=== PATIENT | male | born 1990 | race Caucasian/White ===

== ENCOUNTER 2020-10-16 01:45 | Emergency (ER) | payer OTHER, SELFPAY ==
[2020-10-16 01:52] VITALS: BP 133/71; PULSE 108; RESP 16; TEMP 37.4; O2SAT 96; BMI 25.1
--- NOTE | 2020-10-16 02:03 | ED_ITS ---
HPI - Nausea/Vomiting/Diarrhea General Chief complaint: Nausea/Vomiting/Diarrhea Stated complaint: multiple complaints Time Seen by Provider: 10/16/20 02:02 History of Present Illness HPI Narrative: Patient 30-year-old male after using heroin and cocaine. Patient is homeless and feels nauseous. He currently feels still thick patient came to the emergency department. Denies any fever chills. No cough no congestion or upper respiratory symptoms. Patient is homeless. Related Data Allergies Allergy/AdvReac Type Severity Reaction Status Date / Time No Known Allergies Allergy Unverified 01/06/20 18:48 [No Known Allergies*] Review of Systems Review of Systems: Constitutional: No Weight loss, No Fever, No Chills, No Night Sweats, No Fatigue, No Malaise ENT/Mouth: No Hearing loss, No Ear Pain, No Nasal Congestion, No Sinus Pain, No Hoarseness, No sore throat, No Rhinorrhea, No Swallowing Difficulty Eyes: No Eye Pain, No Swelling, No Redness, No Foreign Body, No Discharge, No Vision Changes Cardiovascular: No Chest Pain, No SOB, No Dyspnea on Exertion, No Orthopnea, No Edema, No Palpitations Respiratory: No Cough, No Sputum, No Wheezing, No Smoke Exposure, No Dyspnea Gastrointestinal: positive Nausea, positiveVomiting, No Diarrhea, No Constipation, No abdominal Pain, No Hematochezia, No Melena Genitourinary: no irregular bleeding, No Dysuria, No Urinary Frequency, No Hematuria, No Urinary Incontinence, No Urgency, No Flank Pain, No Urinary Flow Changes, No Hesitancy Musculoskeletal: No joint pain, No Myalgias, No Joint Swelling Skin: No Skin Lesions, No rash Neuro: No Weakness, No Numbness, No Paresthesias, No Loss of Consciousness, No Dizziness, No Headache Psych: No Anxiety/Panic, No Depression, No SI/HI/AH/VH, No Social Issues, Heme/Lymph: No Bruising, No Bleeding,No Lymphadenopathy Endocrine: No Polyuria, No Polydipsia, No Temperature Intolerance [facility] Past Medical History Attestation statement: The following information was validated with the patient. Medical History (Updated 10/16/20 @ 02:06 by Soledad Hutchison MD) Hepatitis C Social History Social History Alcohol intake: current Alcohol intake frequency: 3 or more drinks per day Patient Tobacco Use Status: Current everyday Tobacco user Smoked in Last 30 Days: Yes Use of substances other than those prescribed or required for medical reasons: Yes Substance Use Type: Crack/Cocaine, Heroin and IV Drugs Substance Use Frequency: Daily Substance Use Frequency Other:: daily Last Used Substance: Hours (ago) Physical Exam Vital Signs: Vital Signs: Last Vital Signs Temp 99.3 F 10/16/20 01:52 Pulse 108 H 10/16/20 01:52 Resp 16 10/16/20 01:52 BP 133/71 10/16/20 01:52 Pulse Ox 96 10/16/20 01:52 Body Mass Index 25.1 Appearance: Alert. Oriented X3. No acute distress. Eyes: Pupils equal, round and reactive to light. ENT: Pharynx normal. Neck: Normal inspection. Neck supple. No lymph nodes noted. No crepitus CVS: Normal heart rate and rhythm. Pulses normal. Normal S1 and S2 Respiratory: No respiratory distress. Breath sounds normal. No Wheezing. No rales Abdomen: Soft and nontender. No rigidity. No distention. good BS x4 Skin: Skin warm and dry. Normal skin color. Normal skin turgor. Extremities: No lower extremity edema. Neurovascular intact to all extremities. No Lacerations. No Rash Neuro: Oriented X 3. No motor deficit. No sensory deficit. Moving all extermities. No slurred speech MDM - Nausea/Vomiting/Diarrhea MDM Narrative Medical decision making narrative: well-appearing no acute distress. Will give Zofran for nausea will monitor. P.o. challenge. Patient told He needs to go to detox Discharge Plan Discharge Clinical Impression: Vomiting, Cocaine abuse, Heroin abuse Patient Disposition: Home, Self-Care Instructions: Narcotic Safety (ED), Narcotic Use Disorder (ED) Referrals: Physician,Unknown [Physician] - 2 days ( please stop using recreational drugs and go to detox. Using cocaine and heroin can kill you.)
[2020-10-16 08:00] VITALS: BP 134/68; PULSE 92; RESP 16; TEMP 37.1; O2SAT 96
== END 2020-10-16 08:29 | disposition home or self-care (01) ==
LOC: HO.ED 03:58
PROVIDERS: Emergency Provider Emergency Medicine Emergency Medical Services
DX: F14.10 Cocaine abuse, uncomplicated (principal); F11.10 Opioid abuse, uncomplicated; R11.2 Nausea with vomiting, unspecified; Z59.0 Homelessness
CPT/HCPCS: 99283; 99284

== ENCOUNTER 2021-07-15 22:59 | Emergency (ER) | payer OTHER, SELFPAY ==
--- NOTE | ~2021-07-15 | XR_ITS ---
EXAMINATION: XR CHEST CLINICAL INFORMATION: Shortness of breath COMPARISON: 10/09/2018 TECHNIQUE: Frontal view of the chest was obtained. FINDINGS: Other than new elevation of the left hemidiaphragm with a mildly dilated stomach beneath, no significant abnormality is seen. Heart size within normal limits. The lungs are clear without infiltrates, effusions or lung masses. XR/XR chest 1V IMPRESSION: No acute intrathoracic disease. Mild elevation of the left hemidiaphragm.
--- NOTE | ~2021-07-15 | XR_ITS ---
EXAMINATION: XR FOOT, RIGHT CLINICAL INFORMATION: Great toe injury COMPARISON: None TECHNIQUE: AP, lateral, and oblique views of the right foot. FINDINGS: Soft tissue swelling is evident at the great toe. No acute fracture or malalignment. Bone mineralization is normal. No subcutaneous gas. No radiodense foreign bodies. Bipartite lateral hallux sesamoid. No acute fractures are identified. Bone mineralization is normal. XR/XR foot RT 2V IMPRESSION: No acute osseous findings. Mild soft tissue swelling at the great toe. Bipartite lateral hallux sesamoid.
[2021-07-15 23:07] VITALS: BP 123/77; BP 127/75; PULSE 106; PULSE 110; RESP 15; TEMP 36.9; O2SAT 95; O2SAT 97; BMI 28.1
--- NOTE | 2021-07-15 23:15 | PC.NURSE ---
Belongings checked for drugs or paraphernalia by security and secured at bedside.
--- NOTE | 2021-07-15 23:26 | ED_ITS ---
HPI - SOB/Dyspnea General Chief Complaint: Dyspnea Stated Complaint: Sob,after use of cocaine Time Seen by Provider: 07/15/21 23:20 Source: patient Mode of arrival: ambulatory Limitations: no limitations History of Present Illness HPI Narrative: Patient IV drug user use cocaine and heroin prior to arrival also taking methadone felt funny anxious said that could not take breath but breathing normally now saturating 95% at room air feels anxious. No fever no chills no cough also complaining of pain in the right foot after dropped some heavy stuff on his right foot few days ago Related Data Allergies Allergy/AdvReac Type Severity Reaction Status Date / Time No Known Allergies Allergy Unverified 01/06/20 18:48 [No Known Allergies*] Review of Systems Review of Systems: Yes all other systems are reviewed and are negative [facility] Past Medical History Medical History Hepatitis C Social History Social History Alcohol intake: current Alcohol intake frequency: 3 or more drinks per day Patient Tobacco Use Status: Current everyday Tobacco user Substance Use Type: Crack/Cocaine, Heroin and IV Drugs Advance Directives: No Advance Directives Information Provided: No Physical Exam Vital Signs: Vital Signs: Last Vital Signs Temp 98.4 F 07/15/21 23:07 Pulse 106 H 07/15/21 23:07 Resp 15 07/15/21 23:07 BP 127/75 07/15/21 23:07 Pulse Ox 95 07/15/21 23:07 BMI result Body Mass Index 28.1 Appearance: Alert. Oriented X3. No acute distress. Anxious Eyes: PERRLA, No Nystagmus ENT: Pharynx normal. Oral Mucosa moist Neck: Normal inspection. Neck supple. CVS: Normal heart rate and rhythm. Pulses normal. Respiratory: No respiratory distress. Equal air entry bilateral, no wheezing/rales/rhonchi Abdomen: Soft and nontender. Bowel sounds are present, no mass palpable, no CVA tenderness Skin: Skin warm and dry. Normal skin color. Normal skin turgor. Extremities: No lower extremity edema. No calf tenderness IVDA track noland++ right greater toe tender without significant swelling or deformity Neuro: Oriented X 3. No motor deficit. No sensory deficit.No cerebellar signs , cranial nerves II-XII intact MDM - SOB/Dyspnea MDM Narrative Medical decision making narrative: Patient with anxiety substance abuse normal EKG chest x-ray negative saturating 96% at room air covid negative discharge patient advised to follow with detox Lab Data Attestation: I reviewed the patient's lab results. Labs: Lab Results 07/15/21 Range/Units 23:49 COVID-19 ([facility]) Negative (Negative) COVID-19 Clin Com See Note ECG Data Attestation: I personally reviewed and interpreted this ECG as follows: Interpretation: Normal sinus rhythm heart rate 97 beats per minute normal intervals normal axis no acute ischemic changes impression normal EKG Discharge Plan Discharge Clinical Impression: Polysubstance abuse, Anxiety Patient Disposition: Home, Self-Care Instructions: Polysubstance Abuse (ED), Anxiety (ED) Additional Instructions: Stop using cocaine and other drugs Follow with detox
--- NOTE | 2021-07-15 23:31 | ECG_ITS ---
Test Reason : cp Blood Pressure : / mmHG Vent. Rate : 097 BPM Atrial Rate : 097 BPM P-R Int : 134 ms QRS Dur : 088 ms QT Int : 368 ms P-R-T Axes : 034 053 040 degrees QTc Int : 467 ms Normal sinus rhythm Normal ECG When compared with ECG of 07-DEC-2019 19:52, Nonspecific T wave abnormality no longer evident in Lateral leads Referred By: Ayaz Abarca Electronically Signed By:DEBBIE SUMMERS
[2021-07-16 00:11] LABS: COVID-19 Test Negative (Negative)
[2021-07-16 00:49] VITALS: BP 127/64; PULSE 89; RESP 14; TEMP 36.8; O2SAT 98
== END 2021-07-16 00:57 | disposition home or self-care (01) ==
PROVIDERS: Emergency Provider Internal Medicine
DX: R06.02 Shortness of breath (principal); F43.0 Acute stress reaction; F41.1 Generalized anxiety disorder; F14.10 Cocaine abuse, uncomplicated; F11.10 Opioid abuse, uncomplicated; M79.671 Pain in right foot; Z20.822 Contact with and (suspected) exposure to COVID-19; Z79.899 Other long term (current) drug therapy; F17.200 Nicotine dependence, unspecified, uncomplicated; Z71.6 Tobacco abuse counseling
CPT/HCPCS: 71045; 73620; 87635; 93005; 99284

== ENCOUNTER 2021-09-27 03:59 | Observation (INO) | payer OTHER, SELFPAY ==
[2021-09-27] VITALS (9 sets, daily range): BP systolic 101–155; BP diastolic 54–73; PULSE 55–112; RESP 14–20; TEMP 36.9–37.8; O2SAT 92–100; BMI 17.5
--- NOTE | ~2021-09-27 | US_ITS ---
EXAMINATION: ULTRASOUND EXTREMITY NONVASCULAR CLINICAL INFORMATION: Bilateral wrist swelling, rule out abnormal collection. COMPARISON: None TECHNIQUE: Multiple 2-D grayscale and color Doppler also images of the soft tissues of the wrist were obtained bilaterally. FINDINGS: Mild subcutaneous edema seen in the regions of concern bilaterally. No focal fluid collection. Color Doppler showed no abnormal vascular flow. US/US extremity nonvascular IMPRESSION: Mild subcutaneous edema in the wrist bilaterally without focal fluid collection. * If these findings persist or enlarge, short-term repeat targeted soft tissue ultrasound can be performed as clinically indicated to assess for change. If clinically indicated, MRI should be considered as well.
--- NOTE | ~2021-09-27 | XR_ITS ---
EXAMINATION: XR CHEST CLINICAL INFORMATION: Shortness of breath COMPARISON: 07/15/2021 TECHNIQUE: Frontal view of the chest was obtained. FINDINGS: No significant abnormality is noted involving the heart, lungs, mediastinum, bony thorax or soft tissues. XR/XR chest 1V IMPRESSION: Unremarkable examination.
--- NOTE | 2021-09-27 04:18 | ECG_ITS ---
Test Reason : OD Blood Pressure : / mmHG Vent. Rate : 098 BPM Atrial Rate : 098 BPM P-R Int : 122 ms QRS Dur : 088 ms QT Int : 340 ms P-R-T Axes : 040 070 058 degrees QTc Int : 434 ms Normal sinus rhythm Normal ECG When compared with ECG of 15-JUL-2021 23:40, No significant change was found Referred By: Maggie Ramirez Electronically Signed By:DEBBIE SUMMERS
[2021-09-27 04:34] LABS: MANUAL DIFF FLAG NO
[2021-09-27 04:35] LABS: Basophils Percent Auto 0.1 % (0-2); Eosinophils Absolute Auto 0.2 X10*3/uL (0.0-0.4); Eosinophils Percent Auto 1.9 % (0-4); Hematocrit 33.8 % (42.0-52.0); Hemoglobin 11.8 g/dl (14.0-18.0); Imm Gran Abs Auto 0.02 X10*3/uL (0.00-0.03); Imm Gran Pct Auto 0.3 % (0.0-0.4); Lymphocytes Absolute Auto 1.8 X10*3/uL (1.2-4.9); Lymphocytes Percent Auto 23.7 % (20-40); Mean Corpuscular HGB Conc 34.9 g/dl (31.0-36.0); Mean Corpuscular Hemoglobin 28.2 pg (27.0-33.0); Mean Corpuscular Volume 80.7 fL (80.0-98.0); Mean Platelet Volume 10.7 fL (9.4-12.4); Monocytes Absolute Auto 1.1 X10*3/uL (0.1-1.2); Monocytes Percent Auto 13.7 % (2-11); Neutrophils Absolute Auto 4.6 x10*3/uL (2.0-8.3); Neutrophils Percent Auto 60.3 % (45-73); Platelet Count 132 X10*3/uL (160-400); Red Blood Count 4.19 X10*6/uL (4.60-5.80); Red Cell Distribution Width 13.7 % (11.0-16.0); White Blood Count 7.7 X10*3/uL (4.8-10.8)
[2021-09-27] MEDS: 0.9 % Sodium Chloride 1,000 ML 999 ML IV (04:38)
[2021-09-27] MEDS: Piperacillin Sodium/Tazobactam 3.375 GM in 0.9 % Sodium Chloride 50 ML IV (04:39)
[2021-09-27 04:45] LABS: INTERNATIONAL NORM RATIO 1.1 (0.9-1.1); Prothrombin Time 12.5 SEC (9.9-13.0)
[2021-09-27 04:46] LABS: Lactic Acid 2.5 mmol/L (0.5-2.0)
--- NOTE | 2021-09-27 04:46 | ED_ITS ---
HPI - General Adult General Chief complaint: General Medical Stated complaint: FEVER,DRUG USE Time Seen by Provider: 09/27/21 04:17 Source: patient Mode of arrival: EMS History of Present Illness HPI narrative: 31-year-old male with history of hepatitis-C, IVDA and used heroin 1 hour ago as well as alcohol and states he has infected hand due to shooting up heroin, has fevers but otherwise denies nausea, vomiting, urinary symptoms, abdominal pain/chest pain/palpitations. Related Data Allergies Allergy/AdvReac Type Severity Reaction Status Date / Time No Known Allergies Allergy Unverified 01/06/20 18:48 [No Known Allergies*] Review of Systems Review of Systems: Pertinent positives and negatives as stated in HPI 10 point review of systems is otherwise negative. PMFSH Past Medical History Source: nursing notes reviewed Medical History Hepatitis C Social History Social History Alcohol intake: current Alcohol intake frequency: 3 or more drinks per day Patient Tobacco Use Status: Current everyday Tobacco user Substance Use Type: Crack/Cocaine, Heroin and IV Drugs Physical Exam ED Vital Signs: Vital Signs - 24 hr 09/27/21 04:13 Temperature 99.3 F Pulse Rate 110 H Respiratory Rate 20 Blood Pressure 101/58 L Pulse Oximetry 96 Oxygen Delivery Method Room Air BMI result Body Mass Index 17.5 VITAL SIGNS: Reviewed. GENERAL: Well developed, well nourished, in no acute distress. HEAD: Normocephalic/atraumatic EYES: PERRLA, EOMI EARS: Ext canals without abnormality OROPHARYNX: no oral lesions noted, posterior pharynx clear LUNGS: Normal breath sounds. No adventitious sounds or accessory muscle use. SpO2<96> CARDIOVASCULAR: Regular rate and rhythm without noted murmurs, no JVD or lower extremity edema. ABDOMEN: Soft, non-tender, non-distended with bowel sounds. MUSCULOSKELETAL: No tenderness, deformities, or effusions noted on gross inspection. EXTREMITIES: No cyanosis, clubbing or edema; BILATERAL UPPER EXTREMITY: Both are slightly swollen with areas of redness and tenderness over the palmar aspect of the wrist were patient has clearly been injecting. SKIN: Inspection of the skin reveals no rashes NEUROLOGIC: Alert and oriented x 4. Strength and sensation to light touch were grossly intact x 4. Course Course Course Narrative: 31-year-old male with history and clinical presentation consistent with IVDA and subsequent cellulitis, and on review of all investigations findings are s uggestive of cellulitis and will benefit from IV antibiotics. I discussed this case with the inpatient hospitalist who accepts admission. Patient received antibiotics. Procedures EJ/Peripheral Line Arm R: Time Out Performed: No Skin Cleansed in Sterile Fashion: Yes Size (gauge): 18 IV Secured and Dressing Applied: Yes Patient Tolerated Procedure: well Additional Comments: via Ultrasound Medical Decision Making Lab Data Result diagrams: 09/27/21 04:25 09/27/21 04:25 Labs: Lab Results 09/27/21 09/27/21 09/27/21 Range/Units 04:25 04:25 04:25 WBC 7.7 (4.8-10.8) X10*3/uL RBC 4.19 L (4.60-5.80) X10*6/uL Hgb 11.8 L (14.0-18.0) g/dl Hct 33.8 L (42.0-52.0) % MCV 80.7 (80.0-98.0) fL MCH 28.2 (27.0-33.0) pg MCHC 34.9 (31.0-36.0) g/dl RDW 13.7 (11.0-16.0) % Plt Count 132 L (160-400) X10*3/uL MPV 10.7 (9.4-12.4) fL Immature Gran % (Auto) 0.3 (0.0-0.4) % Neut % (Auto) 60.3 (45-73) % Lymph % (Auto) 23.7 (20-40) % [place] % (Auto) 13.7 H (2-11) % Eos % (Auto) 1.9 (0-4) % Baso % (Auto) 0.1 (0-2) % Lymph # (Auto) 1.8 (1.2-4.9) X10*3/uL [place] # (Auto) 1.1 (0.1-1.2) X10*3/uL Eos # (Auto) 0.2 (0.0-0.4) X10*3/uL Baso # (Auto) 0.0 (0.0-0.2) X10*3/uL Abs Immat Gran (auto) 0.02 (0.00-0.03) X10*3/uL Absolute Neuts (auto) 4.6 (2.0-8.3) x10*3/uL Absolute Nucleated RBC 0.000 (0.0-0.012) X10*3/uL Nucleated RBC % (auto) 0.0 (0.0-0.2) /100WBC PT 12.5 (9.9-13.0) SEC INR 1.1 (0.9-1.1) Sodium 134 L (135-145) mmol/L Potassium 3.6 (3.3-5.1) mmol/L Chloride 100 (96-108) mmol/L Carbon Dioxide 23 (22-29) mmol/L Anion Gap 15 (12-20) BUN 24 H (9-16) mg/dL Creatinine 0.80 (0.5-1.4) mg/dL Estim Creat Clear Calc 94.3 Estimated GFR > 60 Random Glucose 115 (60-115) mg/dL Lactic Acid (0.5-2.0) mmol/L Calcium 8.3 L (8.4-10.2) mg/dL Total Bilirubin 0.6 (0.0-1.0) mg/dL AST 133 H (5-37) U/L ALT 112 H (0-40) U/L Alkaline Phosphatase 77 (39-117) U/L Troponin I High Sens (<3.5-35.0) ng/L Total Protein 6.9 (6.5-8.0) g/dL Albumin 4.0 (3.5-5.0) g/dL Ethyl Alcohol mg/dL 09/27/21 09/27/21 09/27/21 Range/Units 04:25 04:25 04:25 WBC (4.8-10.8) X10*3/uL RBC (4.60-5.80) X10*6/uL Hgb (14.0-18.0) g/dl Hct (42.0-52.0) % MCV (80.0-98.0) fL MCH (27.0-33.0) pg MCHC (31.0-36.0) g/dl RDW (11.0-16.0) % Plt Count (160-400) X10*3/uL MPV (9.4-12.4) fL Immature Gran % (Auto) (0.0-0.4) % Neut % (Auto) (45-73) % Lymph % (Auto) (20-40) % [place] % (Auto) (2-11) % Eos % (Auto) (0-4) % Baso % (Auto) (0-2) % Lymph # (Auto) (1.2-4.9) X10*3/uL [place] # (Auto) (0.1-1.2) X10*3/uL Eos # (Auto) (0.0-0.4) X10*3/uL Baso # (Auto) (0.0-0.2) X10*3/uL Abs Immat Gran (auto) (0.00-0.03) X10*3/uL Absolute Neuts (auto) (2.0-8.3) x10*3/uL Absolute Nucleated RBC (0.0-0.012) X10*3/uL Nucleated RBC % (auto) (0.0-0.2) /100WBC PT (9.9-13.0) SEC INR (0.9-1.1) Sodium (135-145) mmol/L Potassium (3.3-5.1) mmol/L Chloride (96-108) mmol/L Carbon Dioxide (22-29) mmol/L Anion Gap (12-20) BUN (9-16) mg/dL Creatinine (0.5-1.4) mg/dL Estim Creat Clear Calc Estimated GFR Random Glucose (60-115) mg/dL Lactic Acid 2.5 H* (0.5-2.0) mmol/L Calcium (8.4-10.2) mg/dL Total Bilirubin (0.0-1.0) mg/dL AST (5-37) U/L ALT (0-40) U/L Alkaline Phosphatase (39-117) U/L Troponin I High Sens 4.1 (<3.5-35.0) ng/L Total Protein (6.5-8.0) g/dL Albumin (3.5-5.0) g/dL Ethyl Alcohol 68 mg/dL ECG Data Attestation: I personally reviewed and interpreted this ECG as follows: Prior ECG tracings: available for review Interpretation: NSR, HR-98, no STEMI, IN/QRS/QTC is within normal limits. Discharge Plan Discharge Clinical Impression: Cellulitis, Polysubstance dependence including opioid drug with daily use Patient Disposition: Admitted As Inpatient
[2021-09-27 04:48] LABS: Ethanol 68 mg/dL
[2021-09-27 04:54] LABS: Troponin-I High Sensitivity 4.1 ng/L (<3.5-35.0)
[2021-09-27 04:58] LABS: Alanine Aminotransferase 112 U/L (0-40); Alkaline Phosphatase 77 U/L (39-117); Anion Gap 15 (12-20); Aspartate Amino Transferase 133 U/L (5-37); Bilirubin Total 0.6 mg/dL (0.0-1.0); Blood Urea Nitrogen 24 mg/dL (9-16); Calcium 8.3 mg/dL (8.4-10.2); Carbon Dioxide 23 mmol/L (22-29); Chloride 100 mmol/L (96-108); Creatinine Clr Calc Pharmacy 94.3; Estimated Glomerular Filt Rate > 60; Glucose Random 115 mg/dL (60-115); Potassium 3.6 mmol/L (3.3-5.1); Sodium 134 mmol/L (135-145); Total Protein 6.9 g/dL (6.5-8.0)
[2021-09-27 06:33] LABS: Reflex Lactate? Lactic Acid Added
[2021-09-27 06:48] LABS: COVID-19 Test Negative (Negative)
[2021-09-27 08:42] LABS: Appearance Urine TURBID; Color Urine YELLOW; Glucose Urine UA NEG (NEG); Leukocyte Esterase Urine NEG (NEG); Nitrite Urine NEG (NEG); Specific Gravity - Urine 1.025 (1.005-1.025); UACC Culture Trigger NO; Urine Blood TRACE (NEG); Urine Ketones NEG (NEG); Urine Protein NEG (NEG-TRACE)
[2021-09-27 08:50] LABS: ~Lactic Acid-LAB USE ONLY 0.8 mmol/L (0.5-2.0)
[2021-09-27 08:54] LABS: Amphetamine Screen Urine Not Detected (Not Detect); Barbiturates, Urine Not Detected (Not Detect); Benzodiazepines Screen Urine Not Detected (Not Detect); Cannabinoid Screen Urine Not Detected (Not Detect); Cocaine Screen Urine POSITIVE (Not Detect); Fentanyl, urine POSITIVE (Not Detect); Opiate Screen Urine POSITIVE (Not Detect); Phencyclidine Screen Urine Not Detected (Not Detect)
[2021-09-27] MEDS: LORazepam 2 MG/ML VIAL IVPUSH (08:54)
[2021-09-27 09:02] LABS: Amorphous Sediment Urine 4+ /LPF
[2021-09-27 09:03] LABS: Bacteria Urine TRACE /LPF
[2021-09-27 09:04] LABS: RBC Urine 0 /HPF (0); WBC Urine 0 /HPF (0-4)
[2021-09-27 09:12] LABS: Calcium Carbonate Crystals Ur 1+ /LPF
--- NOTE | 2021-09-27 09:12 | P.HPHOSP_ITS ---
History of Present Illness Date of Service: 09/27/21 Chief Complaint: fevers, arm rendess and pain This is a 31 year old male with a PMH of Hep C (not on treatment), polysubstance abuse (IV heroin/cocain + daily heavy alcohol) who presents to the ED with complaints of fevers and bilateral UE swelling of unknown duration. The patient reports for the last 2 weeks he has been using infection drugs multiple times da duy along with drinking 10 24 oz beers daily with last use of all the day prior to arrival. The patient reports subjective fevers and worsening UE swelling bilaterally hence the reason for the ED visit. He denies any cough, chest pain, shortness of breath. He denies any abdominal pain, nausea or vomiting. He denies any SI/HI. He reports he was on methadone 20mg but has not taken it for 3 days. He is interested in MAT for opiate use disorder. In the ED, basic work up showed elevated lactate without leukocytosis. He was given IVF and iv zosyn and admission was requested. Review of Systems Review of Systems: negative except HPI [facility] Medical History (Updated 09/27/21 @ 06:14 by Maggie Ramirez MD) Hepatitis C Pertinent family history: Denies any FH Surgical History (Updated 09/27/21 @ 09:27 by Nikko Tao MD) No pertinent past surgical history Social History Alcohol intake: current Alcohol intake frequency: 3 or more drinks per day Patient Tobacco Use Status: Current everyday Tobacco user Substance Use Type: Crack/Cocaine, Heroin and IV Drugs Advance Directives: No Meds Allergies Allergy/AdvReac Type Severity Reaction Status Date / Time No Known Allergies Allergy Unverified 01/06/20 18:48 [No Known Allergies*] Active Medications: Current Medications Acetaminophen (Acetaminophen 325 Mg Tablet) 650 mg PO Q6H PRN PRN Reason: Pain, Mild (Pain Scale 1-3) Enoxaparin Sodium (Enoxaparin Sodium 40 Mg/0.4 Ml Syringe) 40 mg SUBCUT Q24H ANITA Vancomycin HCl 1,000 mg/ (Sodium Chloride) 270 mls @ 270 mls/hr IV Q12H ANITA Cefazolin Sodium 1 gm/ Sodium (Chloride) 50 mls @ 100 mls/hr IV Q8H ANITA Lactated Ringer's (Lr) 1,000 mls @ 125 mls/hr IVCONT .Q8H ANITA Stop: 09/28/21 01:14 Ondansetron HCl (Ondansetron Hcl 4 Mg/2 Ml Vial) 4 mg IVPUSH Q8H PRN PRN Reason: Nausea and Vomiting Pharmacy Consult (Consult Rx Perform Med Rec) 1 each MISCELLANE ONCE PRN PRN Reason: Consult order Pharmacy Consult (Consult Rx Vancomycin Dosing) 1 each MISCELLANE DAILY PRN PRN Reason: Consult order Pharmacy Consult (Consult Rx Etoh Phenob Po Dose) 1 each MISCELLANE ONCE PRN; Protocol PRN Reason: Consult order Physical Exam Vital Signs and Narrative: Vital Signs: Last Vital Signs Temp 99.4 F 09/27/21 08:11 Pulse 94 09/27/21 08:11 Resp 18 09/27/21 08:11 BP 110/54 L 09/27/21 08:11 Pulse Ox 96 09/27/21 08:11 O2 Del Method 09/27/21 08:11 BMI result Body Mass Index 17.5 Const: Other: Constitutional - Awake and Alert, No apparent distress, unkempt Eyes - PERRLA, EOMI Cardiovascular - S1S2, RRR, No edema Respiratory - Normal lung expansion, Normal respiratory effort, No respiratory distress, CTA bilaterally Gastrointestinal - NT / ND; +BS; No rebound or guarding - No CVA tenderness Extremities - no calf tenderness bilaterally, no swelling Musculoskeletal - Normal inspection, normal ROM in the b/l UE including hands Skin - b/l UE with evidence of infection use; erythema >50% of limbs bilaterall y; no palpable mass / abscess appreciated Neurological - Alert & oriented x3, No focal deficit Psychological - Appropriate affect Results Labs CBC and Chem 7: 09/27/21 04:25 09/27/21 04:25 Labs: Laboratory Results - last 24 hr 09/27/21 09/27/21 09/27/21 04:25 04:25 04:25 MCV 80.7 MCH 28.2 MCHC 34.9 RDW 13.7 Plt Count 132 L MPV 10.7 Immature Gran % (Auto) 0.3 Neut % (Auto) 60.3 Lymph % (Auto) 23.7 [place] % (Auto) 13.7 H Eos % (Auto) 1.9 Baso % (Auto) 0.1 Lymph # (Auto) 1.8 [place] # (Auto) 1.1 Eos # (Auto) 0.2 Baso # (Auto) 0.0 Abs Immat Gran (auto) 0.02 Absolute Neuts (auto) 4.6 Absolute Nucleated RBC 0.000 Nucleated RBC % (auto) 0.0 PT 12.5 INR 1.1 Anion Gap 15 Estim Creat Clear Calc 94.3 Estimated GFR > 60 Random Glucose 115 Lactic Acid Lactic Acid F/U @ 2Hr Calcium 8.3 L Total Bilirubin 0.6 AST 133 H ALT 112 H Alkaline Phosphatase 77 Troponin I High Sens Total Protein 6.9 Albumin 4.0 Urine Color Urine Appearance Urine pH Ur Specific [place] Urine Protein Urine Glucose (UA) Urine Ketones Urine Blood Urine Nitrite Ur Leukocyte Esterase Urine Opiates Screen Urine Fentanyl Screen Ur Barbiturates Screen Ur Phencyclidine Scrn Ur Amphetamines Screen U Benzodiazepines Scrn Urine Cocaine Screen U Marijuana (THC) Screen Ethyl Alcohol COVID-19 ([facility]) COVID-19 [employer] 09/27/21 09/27/21 09/27/21 04:25 04:25 04:25 MCV MCH MCHC RDW Plt Count MPV Immature Gran % (Auto) Neut % (Auto) Lymph % (Auto) [place] % (Auto) Eos % (Auto) Baso % (Auto) Lymph # (Auto) [place] # (Auto) Eos # (Auto) Baso # (Auto) Abs Immat Gran (auto) Absolute Neuts (auto) Absolute Nucleated RBC Nucleated RBC % (auto) PT INR Anion Gap Estim Creat Clear Calc Estimated GFR Random Glucose Lactic Acid 2.5 H* Lactic Acid F/U @ 2Hr Calcium Total Bilirubin AST ALT Alkaline Phosphatase Troponin I High Sens 4.1 Total Protein Albumin Urine Color Urine Appearance Urine pH Ur Specific [place] Urine Protein Urine Glucose (UA) Urine Ketones Urine Blood Urine Nitrite Ur Leukocyte Esterase Urine Opiates Screen Urine Fentanyl Screen Ur Barbiturates Screen Ur Phencyclidine Scrn Ur Amphetamines Screen U Benzodiazepines Scrn Urine Cocaine Screen U Marijuana (THC) Screen Ethyl Alcohol 68 COVID-19 ([facility]) COVID-19 [employer] 09/27/21 09/27/21 09/27/21 06:27 08:23 08:23 MCV MCH MCHC RDW Plt Count MPV Immature Gran % (Auto) Neut % (Auto) Lymph % (Auto) [place] % (Auto) Eos % (Auto) Baso % (Auto) Lymph # (Auto) [place] # (Auto) Eos # (Auto) Baso # (Auto) Abs Immat Gran (auto) Absolute Neuts (auto) Absolute Nucleated RBC Nucleated RBC % (auto) PT INR Anion Gap Estim Creat Clear Calc Estimated GFR Random Glucose Lactic Acid Lactic Acid F/U @ 2Hr 0.8 Calcium Total Bilirubin AST ALT Alkaline Phosphatase Troponin I High Sens Total Protein Albumin Urine Color YELLOW Urine Appearance TURBID Urine pH 6.0 Ur Specific [place] 1.025 Urine Protein NEG Urine Glucose (UA) NEG Urine Ketones NEG Urine Blood TRACE Urine Nitrite NEG Ur Leukocyte Esterase NEG Urine Opiates Screen Urine Fentanyl Screen Ur Barbiturates Screen Ur Phencyclidine Scrn Ur Amphetamines Screen U Benzodiazepines Scrn Urine Cocaine Screen U Marijuana (THC) Screen Ethyl Alcohol COVID-19 ([facility]) Negative COVID-19 Clin Com See Note 09/27/21 08:23 MCV MCH MCHC RDW Plt Count MPV Immature Gran % (Auto) Neut % (Auto) Lymph % (Auto) [place] % (Auto) Eos % (Auto) Baso % (Auto) Lymph # (Auto) [place] # (Auto) Eos # (Auto) Baso # (Auto) Abs Immat Gran (auto) Absolute Neuts (auto) Absolute Nucleated RBC Nucleated RBC % (auto) PT INR Anion Gap Estim Creat Clear Calc Estimated GFR Random Glucose Lactic Acid Lactic Acid F/U @ 2Hr Calcium Total Bilirubin AST ALT Alkaline Phosphatase Troponin I High Sens Total Protein Albumin Urine Color Urine Appearance Urine pH Ur Specific [place] Urine Protein Urine Glucose (UA) Urine Ketones Urine Blood Urine Nitrite Ur Leukocyte Esterase Urine Opiates Screen POSITIVE H Urine Fentanyl Screen POSITIVE H Ur Barbiturates Screen Not Detected Ur Phencyclidine Scrn Not Detected Ur Amphetamines Screen Not Detected U Benzodiazepines Scrn Not Detected Urine Cocaine Screen POSITIVE H U Marijuana (THC) Screen Not Detected Ethyl Alcohol COVID-19 ([facility]) COVID-19 Clin Com Imaging Radiologist's Impressions: Impressions Chest X-Ray 09/27/21 04:43 IMPRESSION: Unremarkable examination. Assessment and Plan (1) Cellulitis: Status: Acute Plan 31 yo M with a history of hep C, active polysubstance abuse who presents to the ED with complaints of subjective fevers and b/l UE swelling / erythema in the setting of IV drug use. 1. Bilateral UE cellulitis secondary to IV drug use IV vancomcyin/kefzol check ultrasound to evaluate for abscess f/u on blood cx the patient does not have severe sepsis at this time 2. Alcohol abuse and risk for withdrawal not exhibiting withdrawal symptoms currently -- will initiate phenobarb to prevent withdrawwal 3. Polysusbtance abuse previously on methadone, currently interested in restarting -- will consult addiction medicine 4. Hep C outpatient f/u for treatment if he is interested Full Code DVT pptx Lovenox Quality Stroke Does the patient have a stroke diagnosis?: No VTE Prior VTE?: No VTE Risk Level:: Medical - moderate - high VTE Device Contraindication: Treatment Not Indicated VTE Drug Contraindication: N/A - Med Ordered
--- NOTE | 2021-09-27 09:24 | PC.NURSE ---
pt sleeping after ativan administration. was exhibiting withdrawall sx p/t medication. BUE have diffuse reddness and open areas. no drainage noted. pt slightly confused but able to follow commands. aware of plan for admission and IV ABX.
[2021-09-27] MEDS: Lactated Ringers 1,000 ML 125 ML IVCONT ×2 (10:38→18:17)
[2021-09-27] MEDS: Enoxaparin Sodium 40 MG/0.4 ML SYRINGE SUBCUT (10:38)
[2021-09-27] MEDS: vancomycin HCL 1,250 MG in 0.9 % Sodium Chloride 250 ML 166.67 MG IV (11:14)
--- NOTE | 2021-09-27 11:33 | MHC.RECOVRN ---
Attempted to meet with pt, unable at this time due to pts inability to stay awake. Will continue to follow.
[2021-09-27] MEDS: PHENobarbitaL 200 MG, PHENobarbitaL 60 MG 260 MG PO (12:34)
--- NOTE | 2021-09-27 13:36 | PC.NURSE ---
rn to rn deandre cruz on IMC.
--- NOTE | 2021-09-27 13:41 | PHA.MEDREC ---
MED REC COMPLETE, PATIENT STATES HE IS ON METHADONE, AND THAT HE WAS RECENTLY PRESCRIBED SEROQUEL, BUT HAS NOT YET FILLED IT. HE DOES NOT REMEMBER WHICH DOCTOR PRESCRIBED IT Pharmacy Consult ? Medication Reconciliation Pharmacy has completed the medication reconciliation.
--- NOTE | 2021-09-27 16:47 | PM.EVENT ---
Event Note Date of Service: 09/27/21 Event Note: Addiction Note: Patient asleep X2 when seen by RSRN and difficult to rouse, however it was noted that he has eaten his meals. Chart reviewed-reported methadone 20mg QD, UDS +fentanyl and opiates. Plan: One time PRN dose methadone for withdrawal (if appropriate and patient not sedated) will reassess in the AM and determine additional dosing then and obtain substance use history
[2021-09-27] MEDS: PHENobarbitaL 15 MG TABLET 45 MG PO (20:39)
[2021-09-27] MEDS: vancomycin HCL 1,000 MG in 0.9 % Sodium Chloride 250 ML 270 MG IV (20:39)
[2021-09-27] MEDS: Acetaminophen 325 MG TABLET 650 MG PO (20:40)
[2021-09-28] VITALS: BP 132/67; PULSE 79; RESP 18; TEMP 36.3; O2SAT 100
[2021-09-28 04:00] VITALS: BP 124/63; PULSE 79; RESP 18; TEMP 36.6; O2SAT 98
[2021-09-28 06:18] LABS: Hematocrit 35.2 % (42.0-52.0); Hemoglobin 11.7 g/dl (14.0-18.0); Mean Corpuscular HGB Conc 33.2 g/dl (31.0-36.0); Mean Corpuscular Hemoglobin 27.2 pg (27.0-33.0); Mean Corpuscular Volume 81.9 fL (80.0-98.0); Mean Platelet Volume 11.3 fL (9.4-12.4); Red Cell Distribution Width 13.9 % (11.0-16.0); White Blood Count 5.5 X10*3/uL (4.8-10.8)
[2021-09-28 06:19] LABS: Platelet Count 99 X10*3/uL (160-400)
[2021-09-28 06:45] LABS: Anion Gap 10 (12-20); Blood Urea Nitrogen 7 mg/dL (9-16); Calcium 8.3 mg/dL (8.4-10.2); Carbon Dioxide 27 mmol/L (22-29); Chloride 103 mmol/L (96-108); Creatinine Clr Calc Pharmacy 119.8; Estimated Glomerular Filt Rate > 60; Glucose Random 102 mg/dL (60-115); Potassium 3.4 mmol/L (3.3-5.1); Sodium 137 mmol/L (135-145)
[2021-09-28 07:49] VITALS: BP 123/49; PULSE 75; RESP 18; TEMP 36.9; O2SAT 99
--- NOTE | 2021-09-28 08:52 | HE.PHANOTE ---
Vancomycin Dosing Addendum Vancomycin Trough scheduled for tonsmith at 1999. Continue with same regimen for now.
[2021-09-28] MEDS: PHENobarbitaL 15 MG TABLET 45 MG PO (08:54)
[2021-09-28] MEDS: Enoxaparin Sodium 40 MG/0.4 ML SYRINGE SUBCUT (08:55)
[2021-09-28] MEDS: methADONE HCl 20 MG/2 ML ORAL.CONC 30 MG PO (10:05)
[2021-09-28] MEDS: vancomycin HCL 1,000 MG in 0.9 % Sodium Chloride 250 ML 270 MG IV (10:06)
--- NOTE | 2021-09-28 10:46 | HO.ADDICTCON ---
History of Present Illness Date of Service: 09/28/2021 Chief Complaint: fever, arm redness Reason for Consult: OUD--eval and treat Requesting physician: Nikko Tao [facility] Narrative: Patient is a 31 year old male with opioid use disorder medically admitted with upper arm cellulitis and concern of abscess (secondary to IVDU). Patient seen by this promotion writer and RSRN in AM. Appearing diaphoretic, restless, teary eyes, yawning and reporting body aches. He states he had been recently started on methadone on [facility] and was at 20mg daily, last dose earlier this week. Reports he has been using approximately 6-10 bags of heroin IV daily. Would like to resume methadone and open to increased dose. Review of Systems Constitutional: Reports as per HPI Diagnostics Vital Signs (24Hr): Vital Signs - 24 hr 09/27/21 11:13 09/27/21 12:35 09/27/21 15:10 Temperature 98.6 F Pulse Rate 102 H 100 92 Respiratory Rate 14 16 17 Blood Pressure 112/73 106/64 133/68 Pulse Oximetry 100 94 Oxygen Delivery Method Room Air Room Air 09/27/21 15:18 09/27/21 20:00 09/28/21 00:00 Temperature 98.4 F 100.0 F 97.4 F Pulse Rate 55 103 H 79 Respiratory Rate 18 18 18 Blood Pressure 155/68 H 138/60 132/67 Pulse Oximetry 97 92 100 Oxygen Delivery Method Room Air Room Air Room Air 09/28/21 04:00 09/28/21 07:49 Temperature 97.9 F 98.5 F Pulse Rate 79 75 Respiratory Rate 18 18 Blood Pressure 124/63 123/49 L Pulse Oximetry 98 99 Oxygen Delivery Method Room Air Room Air BMI result Body Mass Index 17.5 Labs Results: 09/28/21 05:38 09/28/21 05:38 Labs: Laboratory Results - last 48 hr 09/27/21 09/27/21 09/27/21 04:25 04:25 04:25 WBC 7.7 RBC 4.19 L Hgb 11.8 L Hct 33.8 L MCV 80.7 MCH 28.2 MCHC 34.9 RDW 13.7 Plt Count 132 L MPV 10.7 Immature Gran % (Auto) 0.3 Neut % (Auto) 60.3 Lymph % (Auto) 23.7 [place] % (Auto) 13.7 H Eos % (Auto) 1.9 Baso % (Auto) 0.1 Lymph # (Auto) 1.8 [place] # (Auto) 1.1 Eos # (Auto) 0.2 Baso # (Auto) 0.0 Abs Immat Gran (auto) 0.02 Absolute Neuts (auto) 4.6 Absolute Nucleated RBC 0.000 Nucleated RBC % (auto) 0.0 PT 12.5 INR 1.1 Sodium 134 L Potassium 3.6 Chloride 100 Carbon Dioxide 23 Anion Gap 15 BUN 24 H Creatinine 0.80 Estim Creat Clear Calc 94.3 Estimated GFR > 60 Random Glucose 115 Lactic Acid Lactic Acid F/U @ 2Hr Calcium 8.3 L Total Bilirubin 0.6 AST 133 H ALT 112 H Alkaline Phosphatase 77 Troponin I High Sens Total Protein 6.9 Albumin 4.0 Urine Color Urine Appearance Urine pH Ur Specific [place] Urine Protein Urine Glucose (UA) Urine Ketones Urine Blood Urine Nitrite Ur Leukocyte Esterase Urine RBC Urine WBC Ur Squamous Epith Cells Calcium Carbonate Cryst Amorphous Sediment Urine Bacteria Urine Opiates Screen Urine Fentanyl Screen Ur Barbiturates Screen Ur Phencyclidine Scrn Ur Amphetamines Screen U Benzodiazepines Scrn Urine Cocaine Screen U Marijuana (THC) Screen Ethyl Alcohol COVID-19 ([facility]) COVID-19 Clin Com 09/27/21 09/27/21 09/27/21 04:25 04:25 04:25 WBC RBC Hgb Hct MCV MCH MCHC RDW Plt Count MPV Immature Gran % (Auto) Neut % (Auto) Lymph % (Auto) [place] % (Auto) Eos % (Auto) Baso % (Auto) Lymph # (Auto) [place] # (Auto) Eos # (Auto) Baso # (Auto) Abs Immat Gran (auto) Absolute Neuts (auto) Absolute Nucleated RBC Nucleated RBC % (auto) PT INR Sodium Potassium Chloride Carbon Dioxide Anion Gap BUN Creatinine Estim Creat Clear Calc Estimated GFR Random Glucose Lactic Acid 2.5 H* Lactic Acid F/U @ 2Hr Calcium Total Bilirubin AST ALT Alkaline Phosphatase Troponin I High Sens 4.1 Total Protein Albumin Urine Color Urine Appearance Urine pH Ur Specific [place] Urine Protein Urine Glucose (UA) Urine Ketones Urine Blood Urine Nitrite Ur Leukocyte Esterase Urine RBC Urine WBC Ur Squamous Epith Cells Calcium Carbonate Cryst Amorphous Sediment Urine Bacteria Urine Opiates Screen Urine Fentanyl Screen Ur Barbiturates Screen Ur Phencyclidine Scrn Ur Amphetamines Screen U Benzodiazepines Scrn Urine Cocaine Screen U Marijuana (THC) Screen Ethyl Alcohol 68 COVID-19 ([facility]) COVID-19 Clin Com 09/27/21 09/27/21 09/27/21 06:27 08:23 08:23 WBC RBC Hgb Hct MCV MCH MCHC RDW Plt Count MPV Immature Gran % (Auto) Neut % (Auto) Lymph % (Auto) [place] % (Auto) Eos % (Auto) Baso % (Auto) Lymph # (Auto) [place] # (Auto) Eos # (Auto) Baso # (Auto) Abs Immat Gran (auto) Absolute Neuts (auto) Absolute Nucleated RBC Nucleated RBC % (auto) PT INR Sodium Potassium Chloride Carbon Dioxide Anion Gap BUN Creatinine Estim Creat Clear Calc Estimated GFR Random Glucose Lactic Acid Lactic Acid F/U @ 2Hr 0.8 Calcium Total Bilirubin AST ALT Alkaline Phosphatase Troponin I High Sens Total Protein Albumin Urine Color YELLOW Urine Appearance TURBID Urine pH 6.0 Ur Specific [place] 1.025 Urine Protein NEG Urine Glucose (UA) NEG Urine Ketones NEG Urine Blood TRACE Urine Nitrite NEG Ur Leukocyte Esterase NEG Urine RBC 0 Urine WBC 0 Ur Squamous Epith Cells NONE Calcium Carbonate Cryst 1+ Amorphous Sediment 4+ Urine Bacteria TRACE Urine Opiates Screen Urine Fentanyl Screen Ur Barbiturates Screen Ur Phencyclidine Scrn Ur Amphetamines Screen U Benzodiazepines Scrn Urine Cocaine Screen U Marijuana (THC) Screen Ethyl Alcohol COVID-19 ([facility]) Negative COVID-19 Clin Com See Note 09/27/21 09/28/21 09/28/21 08:23 05:38 05:38 WBC 5.5 RBC 4.30 L Hgb 11.7 L Hct 35.2 L MCV 81.9 MCH 27.2 MCHC 33.2 RDW 13.9 Plt Count 99 L MPV 11.3 Immature Gran % (Auto) Neut % (Auto) Lymph % (Auto) [place] % (Auto) Eos % (Auto) Baso % (Auto) Lymph # (Auto) [place] # (Auto) Eos # (Auto) Baso # (Auto) Abs Immat Gran (auto) Absolute Neuts (auto) Absolute Nucleated RBC 0.000 Nucleated RBC % (auto) 0.0 PT INR Sodium 137 Potassium 3.4 Chloride 103 Carbon Dioxide 27 Anion Gap 10 L BUN 7 L D Creatinine 0.63 Estim Creat Clear Calc 119.8 Estimated GFR > 60 Random Glucose 102 Lactic Acid Lactic Acid F/U @ 2Hr Calcium 8.3 L Total Bilirubin AST ALT Alkaline Phosphatase Troponin I High Sens Total Protein Albumin Urine Color Urine Appearance Urine pH Ur Specific [place] Urine Protein Urine Glucose (UA) Urine Ketones Urine Blood Urine Nitrite Ur Leukocyte Esterase Urine RBC Urine WBC Ur Squamous Epith Cells Calcium Carbonate Cryst Amorphous Sediment Urine Bacteria Urine Opiates Screen POSITIVE H Urine Fentanyl Screen POSITIVE H Ur Barbiturates Screen Not Detected Ur Phencyclidine Scrn Not Detected Ur Amphetamines Screen Not Detected U Benzodiazepines Scrn Not Detected Urine Cocaine Screen POSITIVE H U Marijuana (THC) Screen Not Detected Ethyl Alcohol COVID-19 ([facility]) COVID-19 Clin Com Imaging Radiology Impressions: ITS Impressions Chest X-Ray 09/27/21 04:43 IMPRESSION: Unremarkable examination. Extremity Ultrasound 09/27/21 09:50 IMPRESSION: Mild subcutaneous edema in the wrist bilaterally without focal fluid collection. * If these findings persist or enlarge, short-term repeat targeted soft tissue ultrasound can be performed as clinically indicated to assess for change. If clinically indicated, MRI should be considered as well. Mental Status Exam Mental Status Exam Patient Appearance: Perspiring and Unkempt Thought Process: Goal Oriented Judgement: Fair Medications Medications Current Medications Acetaminophen (Acetaminophen 325 Mg Tablet) 650 mg PO Q6H PRN PRN Reason: Pain, Mild (Pain Scale 1-3) Last Admin: 09/27/21 20:40 Dose: 650 mg Enoxaparin Sodium (Enoxaparin Sodium 40 Mg/0.4 Ml Syringe) 40 mg SUBCUT Q24H [facility] Last Admin: 09/28/21 08:55 Dose: 40 mg Vancomycin HCl 1,000 mg/ (Sodium Chloride) 270 mls @ 270 mls/hr IV Q12H [facility] Last Admin: 09/28/21 10:06 Dose: 270 mls/hr Cefazolin Sodium 1 gm/ Sodium (Chloride) 50 mls @ 100 mls/hr IV Q8H [facility] Last Infusion: 09/28/21 10:06 Dose: Infused Ondansetron HCl (Ondansetron Hcl 4 Mg/2 Ml Vial) 4 mg IVPUSH Q8H PRN PRN Reason: Nausea and Vomiting Pharmacy Consult (Consult Rx Perform Med Rec) 1 each MISCELLANE ONCE PRN PRN Reason: Consult order Pharmacy Consult (Consult Rx Vancomycin Dosing) 1 each MISCELLANE DAILY PRN PRN Reason: Consult order Pharmacy Consult (Consult Rx Etoh Phenob Po Dose) 1 each MISCELLANE ONCE PRN; Protocol PRN Reason: Consult order Phenobarbital (Phenobarbital 15 Mg Tablet) 45 mg PO BID ANITA Stop: 09/29/21 09:01 Last Admin: 09/28/21 08:54 Dose: 45 mg Phenobarbital (Phenobarbital 15 Mg Tablet) 15 mg PO BID ANITA Stop: 10/01/21 09:01 Phenobarbital (Phenobarbital 15 Mg Tablet) 15 mg PO BEDTIME ANITA Stop: 10/02/21 21:01 Allergies Allergies Allergy/AdvReac Type Severity Reaction Status Date / Time No Known Allergies Allergy Unverified 01/06/20 18:48 [No Known Allergies*] Assessment & Plan Assessment & Plan (1) Opioid use disorder: Status: Acute Code(s): F11.90 - Opioid use, unspecified, uncomplicated Assessment and Plan: methadone 30mg one time order patient medically cleared and discharged to [facility] I spent minutes with the patient and/or on the patient floor today, greater than?50% of which was spent counseling/coordinating care. [facility] Past Medical History Medical History (Updated 09/28/21 @ 15:56 by Nadia Beebe CNP) Hepatitis C Surgical History Surgical History (Updated 09/27/21 @ 09:27 by Nikko Tao MD) No pertinent past surgical history Social History Social History Household Members: None Housing: Apartment Do you presently have visiting nurse or other home services: No Alcohol intake: current Alcohol intake frequency: 3 or more drinks per day Patient Tobacco Use Status: Former Tobacco user Substance Use Type: Crack/Cocaine, IV Drugs and Opiates service: No Current occupational status: unemployed
--- NOTE | 2021-09-28 10:48 | P.DS_ITS ---
DS: Providers Provider Date of Service: 09/28/21 Date of admission: 09/27/21 09:07 Date of discharge: 09/28/21 Primary care physician: Unknown Physician Consults: 09/27/21 09:26 Addiction Medicine Routine Consulting Provider: Nadia Beebe Reason for consultation: history of opiate/cocaine - previously on methadone Attending physician on discharge: Nikko Tao Discharging clinician: Maura Cordova DS: Diagnosis Discharge Diagnosis (1) Cellulitis: Status: Acute (2) Polysubstance dependence including opioid drug with daily use: Status: Acute DS: Summary Hospital Course Hospital Course: From H&P on day of admission This is a 31 year old male with a PMH of Hep C (not on treatment), polysubstance abuse (IV heroin/cocain + daily heavy alcohol) who presents to the ED with complaints of fevers and bilateral UE swelling of unknown duration. The patient reports for the last 2 weeks he has been using infection drugs multiple times daily along with drinking 10 24 oz beers daily with last use of all the day prior to arrival. The patient reports subjective fevers and worsening UE swelling bilaterally hence the reason for the ED visit. He denies any cough, chest pain, shortness of breath. He denies any abdominal pain, nausea or vomiting. He denies any SI/HI. He reports he was on methadone 20mg but has not taken it for 3 days. He is interested in MAT for opiate use disorder. In the ED, basic work up showed elevated lactate without leukocytosis. He was given IVF and iv zosyn and admission was requested. bilateral upper extremity cellulitis secondary to injecting IV drugs. Was started on IV vancomycin Kefzol. Ultrasound showed no evidence of abscess. There was no evidence of sepsis. Patient has remained afebrile. The cellulitis has improved with of IV antibiotics. Blood cultures have remained negative for 24 hours. He will be discharged home with 7 days of oral doxycycline. Polysubstance abuse, alcohol use disorder. Patient was initially started on phenobarbital protocol for prevention of alcohol withdrawal. He is not currently displaying any symptoms of alcohol withdrawal. He was seen by addiction medicine and resumed on methadone. He received 30 mg of methadone this morning. He will be discharged to [facility] who will assist him in the bed search for detox. Hepatitis C, untreated. Recommend outpatient follow-up thrombocytopenia. Likely related to the above. Recommend outpatient follow- up/monitoring Time Spent with Patient Time attestation: Total time spent providing and/or coordinating discharge services: Discharge coordination time: Greater than 30 minutes Quality: Safe Use of Opioids Does Pt have an Active Cancer Diagnosis on the Problem List?: No Quality: Stroke Does the patient have a stroke diagnosis?: No Physical Exam Vital Signs: Vital Signs: Last Vital Signs Temp 98.5 F 09/28/21 07:49 Pulse 75 09/28/21 07:49 Resp 18 09/28/21 07:49 BP 123/49 L 09/28/21 07:49 Pulse Ox 99 09/28/21 07:49 O2 Del Method 09/28/21 07:49 BMI result Body Mass Index 17.5 DS: Data Data Completed and Pending Labs on day of discharge: Laboratory Results - last 24 hr 09/28/21 09/28/21 05:38 05:38 WBC 5.5 RBC 4.30 L Hgb 11.7 L Hct 35.2 L MCV 81.9 MCH 27.2 MCHC 33.2 RDW 13.9 Plt Count 99 L MPV 11.3 Absolute Nucleated RBC 0.000 Nucleated RBC % (auto) 0.0 Sodium 137 Potassium 3.4 Chloride 103 Carbon Dioxide 27 Anion Gap 10 L BUN 7 L D Creatinine 0.63 Estim Creat Clear Calc 119.8 Estimated GFR > 60 Random Glucose 102 Calcium 8.3 L Preliminary micro results at discharge 09/27/21 04:28 Blood Culture - Preliminary Blood - Venous No growth after 24 hours. 09/27/21 04:28 Blood Culture - Preliminary Blood - Venous No growth after 24 hours. Discharge Plan Discharge Patient Disposition: Home, Self-Care Discharge Diagnosis: cellulitis Referrals: Physician,Unknown J [Primary Care Provider] - 1 Week Discharge Medications: New doxycycline hyclate 100 mg tablet 100 mg PO BID 7 Days Qty: 14 0RF Continued quetiapine [Seroquel] 300 mg Tablet 300 mg PO BEDTIME Changed methadone [Methadone Intensol] 10 mg/mL Concentrate 30 mg PO DAILY Qty: 30 0RF Discharge Orders: Discharge Order (Routine); Ordered 09/28/21 Ordered By: Maura Cordova Activity on Discharge: As tolerated Stand Alone Forms: Patient Portal Discharge page Care Plan Goals: see below Health Concerns: b/l arm cellulitis polysubstance abuse Plan of Treatment: please take antibiotics as prescribed refrain from drug and alcohol use follow up outpatient for treatment of hepatitis C, monitoring of platelets Plan to go to [facility] for detox Methadone - last dose 09/28/21 - 30 mg Assessment: see discharge summary Discharge Date/Time: 09/28/21 14:36
--- NOTE | 2021-09-28 11:05 | MHC.RECOVSUP ---
Addendum entered by Piero Riley [facility] 09/28/21 13:12: Patient accepted to [facility] in [place] for ATS. Patient will be transported via Lyft. Admission scheduled for 1600. Original Note: Recovery Support note: Patient is a 31 year old Armenian speaking male who [facility] [place] [facility] on [place] due to an infection related to IV heroin use. Patient used heroin and alcohol prior to arrival. Patient was admitted to the hospital for treatment of the infection and is now cleared for discharge. Patient has expressed interest in going to detox. This staff writer will refer patient to ATS facilities.
--- NOTE | 2021-09-28 11:34 | MHC.CM.PN ---
Addendum entered by Aracelis Castillo 09/28/21 11:49: per recovery team [facility] [address] [facility] for his methadone and was yold her has the number and address Original Note: nurse case specialist note electronic medical record reviewed along with case disucssed with staff nurse and hospitlsit and recobvery team . unable to meet with patient yesterday and he was very sleepy and could nto stay awake more than 5 monsutes. met with patient todayu , he lives with his father , he does not work he has no hcp (and interested in completing one), he has no pcp (and is not interested in getting one and decline me giving him the [facility] physicians list),patient reports he is indpenendent in all adls and mobiltiy with out any devices, he reported actively using iv heroin and cocaine , he has met with the recovery team and has sjown interest in quiting , per recovbery team documentation they will rfer patient to ats facilities
[2021-09-28 12:00] VITALS: BP 128/61; PULSE 87; RESP 18; TEMP 36.6; O2SAT 97
== END 2021-09-28 14:36 | disposition home or self-care (01) ==
LOC: HO.ED 06:30 → HO.EDOVER 09:17 → HO.S3 12:58
PROVIDERS: Admitting Provider Family Medicine; Emergency Provider Student in an Organized Health Care Education/Training Program; Visit Provider Physician Assistant Medical
DX: L03.114 Cellulitis of left upper limb (principal); L03.113 Cellulitis of right upper limb; B19.20 Unspecified viral hepatitis C without hepatic coma; R50.9 Fever, unspecified; F11.20 Opioid dependence, uncomplicated; F14.20 Cocaine dependence, uncomplicated; F10.20 Alcohol dependence, uncomplicated; Y90.3 Blood alcohol level of 60-79 mg/100 ml; F19.90 Other psychoactive substance use, unspecified, uncomplicated; F17.210 Nicotine dependence, cigarettes, uncomplicated; Z20.822 Contact with and (suspected) exposure to COVID-19; Z79.2 Long term (current) use of antibiotics; Z79.899 Other long term (current) drug therapy
CPT/HCPCS: 36415; 71045; 76882; 80048; 80053; 80307; 81001; 82077; 83605; 84484; 85025; 85027; 85610; 87040; 87635; 93005; 99218; 99285; J0690; J1650; J2060; J2543; J3370

== ENCOUNTER 2021-10-07 | Observation (INO) | payer OTHER, SELFPAY ==
--- NOTE | ~2021-10-07 | XR_ITS ---
EXAMINATION: XR CHEST CLINICAL INFORMATION: Chest pain. COMPARISON: Chest radiograph dated from 09/27/2021. TECHNIQUE: AP view of the chest was obtained. FINDINGS: Normal appearance of the cardiomediastinal silhouette. Stable mild asymmetric elevation of left hemidiaphragm. No focal airspace opacity, pleural effusion or pneumothorax. No acute osseous abnormalities. The visualized upper abdomen is within normal limits. XR/XR chest 1V IMPRESSION: No acute cardiopulmonary findings.
[2021-10-07 00:08] VITALS: BP 123/54; PULSE 113; RESP 18; TEMP 37.6; O2SAT 96; BMI 29.7
--- NOTE | 2021-10-07 00:17 | ECG_ITS ---
Test Reason : PALPITATIONS Blood Pressure : / mmHG Vent. Rate : 104 BPM Atrial Rate : 104 BPM P-R Int : 136 ms QRS Dur : 088 ms QT Int : 364 ms P-R-T Axes : 038 057 051 degrees QTc Int : 478 ms Sinus tachycardia Nonspecific ST abnormality Abnormal ECG When compared with ECG of 27-SEP-2021 04:51, No significant change was found Referred By: Beata Kraus Electronically Signed By:Isaac Colbert
--- NOTE | 2021-10-07 00:18 | ED_ITS ---
HPI - General Adult General Chief complaint: General Medical Stated complaint: DRUG USE Time Seen by Provider: 10/07/21 00:09 Source: patient Mode of arrival: ambulatory Limitations: no limitations History of Present Illness HPI narrative: Patient comes in the emergency room complaining of chest pain that started 1/2 hour ago after using cocaine. Patient denies shortness of breath. Patient complaining of a quality because of the palpitations. Also, patient complaining erythema on the dorsum of both hands. Patient admits to being IV drug user. Patient denies fever chills Related Data Home Medications Medication Instructions Recorded Confirmed quetiapine 300 mg tablet (Seroquel) 300 mg PO BEDTIME 09/27/21 Previous Rx's Medication Instructions Recorded doxycycline hyclate 100 mg tablet 100 mg PO BID 7 days #14 tabs 09/28/21 methadone 10 mg/mL oral 30 mg (3 mL) PO DAILY #30 mL 09/28/21 concentrate (Methadone Intensol) Allergies Allergy/AdvReac Type Severity Reaction Status Date / Time No Known Allergies Allergy Unverified 01/06/20 18:48 [No Known Allergies*] Review of Systems Review of Systems: Constitutional : No Weight loss, No Fever, No Chills, No Night Sweats, No Fatigue, No Malaise ENT/Mouth : No Hearing loss, No Ear Pain, No Nasal Congestion, No Sinus Pain, No Hoarseness, No sore throat, No Rhinorrhea, No Swallowing Difficulty Eyes: No Eye Pain, No Swelling, No Redness, No Foreign Body, No Discharge, No Vision Changes Cardiovascular : Complaining of chest pain, palpitations, denies orthopnea Respiratory : No Cough, No Sputum, No Wheezing, No Smoke Exposure, No Dyspnea Gastrointestinal : No Nausea, No Vomiting, No Diarrhea, No Constipation, No abdominal Pain, No Hematochezia, No Melena Genitourinary : no irregular bleeding, No Dysuria, No Urinary Frequency, No Hematuria, No Urinary Incontinence, No Urgency, No Flank Pain, No Urinary Flow Changes, No Hesitancy Musculoskeletal : No joint pain, No Myalgias, No Joint Swelling Skin : Complaining of erythema and pain in the dorsum of both hands where he injects. Neuro : No Weakness, No Numbness, No Paresthesias, No Loss of Consciousness, No Dizziness, No Headache Psych : No Anxiety/Panic, No Depression, No SI/HI/AH/VH, No Social Issues, Heme/Lymph: No Bruising, No Bleeding,No Lymphadenopathy Endocrine : No Polyuria, No Polydipsia, No Temperature Intolerance [facility] Past Medical History Medical History Hepatitis C Opioid use disorder Surgical History No pertinent past surgical history Social History Social History Household Members: None Housing: Apartment Do you presently have visiting nurse or other home services: No Alcohol intake: current Alcohol intake frequency: 3 or more drinks per day Patient Tobacco Use Status: Former Tobacco user Substance Use Type: Crack/Cocaine, IV Drugs and Opiates Advance Directives: No Advance Directives Information Provided: Yes service: No Current occupational status: unemployed Physical Exam ED Vital Signs: Vital Signs - 24 hr 10/07/21 00:08 Temperature 99.6 F Pulse Rate 113 H Respiratory Rate 18 Blood Pressure 123/54 L Pulse Oximetry 96 BMI result Body Mass Index 29.7 Const Other: Appearance: Alert. Oriented X3. Anxious Eyes: Pupils equal, round and reactive to light. ENT: Pharynx normal. Neck: Normal inspection. Neck supple. No lymph nodes noted. No crepitus CVS: Tachycardic, regular rhythm Pulses normal. Normal S1 and S2 Respiratory: No respiratory distress. Breath sounds normal. No Wheezing. No rales Abdomen: Soft and nontender. No rigidity. No distention. Skin: Skin warm and dry. There is erythema to the dorsum of both hands, pain to palpation over the dorsum of both hands, no palpable fluctuations/abscesses. Extremities: No lower extremity edema. No Lacerations. See skin above. Patient is able to flex and extend all fingers of both hands, tenosynovitis not suspected. Neuro: Oriented X 3. No motor deficit. No sensory deficit. Moving all extre mities. No slurred speech. CN 2 through 12 grossly intact Psych: calm, cooperative, normal affect Course Course Course Narrative: Patient's chest pain is likely cocaine induced. Patient given 2 mg of p.o. Ativan and aspirin. EKG and labs pending. Patient has hand cellulitis bilaterally. Tenosynovitis not suspected. Patient would benefit from IV antibiotics. Troponin 1. Is slightly bumped at 54. We will get another troponin at 03:30 in the morning. EKG does not show any acute abnormalities. At this time, 01:50, patient does not have chest pain Medical Decision Making Lab Data Result diagrams: 10/07/21 00:48 10/07/21 00:48 Labs: Lab Results 10/07/21 10/07/21 10/07/21 Range/Units 00:48 00:48 00:48 WBC 13.5 H (4.8-10.8) X10*3/uL RBC 4.73 (4.60-5.80) X10*6/uL Hgb 13.0 L (14.0-18.0) g/dl Hct 39.2 L (42.0-52.0) % MCV 82.9 (80.0-98.0) fL MCH 27.5 (27.0-33.0) pg MCHC 33.2 (31.0-36.0) g/dl RDW 14.0 (11.0-16.0) % Plt Count 209 D (160-400) X10*3/uL MPV 9.8 (9.4-12.4) fL Immature Gran % (Auto) 0.5 H (0.0-0.4) % Neut % (Auto) 86.1 H (45-73) % Lymph % (Auto) 8.9 L (20-40) % Robertson % (Auto) 3.8 (2-11) % Eos % (Auto) 0.5 (0-4) % Baso % (Auto) 0.2 (0-2) % Lymph # (Auto) 1.2 (1.2-4.9) X10*3/uL Robertson # (Auto) 0.5 (0.1-1.2) X10*3/uL Eos # (Auto) 0.1 (0.0-0.4) X10*3/uL Baso # (Auto) 0.0 (0.0-0.2) X10*3/uL Abs Immat Gran (auto) 0.07 H (0.00-0.03) X10*3/uL Absolute Neuts (auto) 11.6 H (2.0-8.3) x10*3/uL Absolute Nucleated RBC 0.000 (0.0-0.012) X10*3/uL Nucleated RBC % (auto) 0.0 (0.0-0.2) /100WBC Sodium 131 L (135-145) mmol/L Potassium 4.2 D (3.3-5.1) mmol/L Chloride 96 (96-108) mmol/L Carbon Dioxide 21 L (22-29) mmol/L Anion Gap 18 (12-20) BUN 23 H D (9-16) mg/dL Creatinine 0.85 (0.5-1.4) mg/dL Estim Creat Clear Calc 129.6 Estimated GFR > 60 Random Glucose 96 (60-115) mg/dL Lactic Acid 2.3 H* (0.5-2.0) mmol/L Calcium 8.6 (8.4-10.2) mg/dL Total Bilirubin 0.8 (0.0-1.0) mg/dL Direct Bilirubin 0.3 (0.0-0.5) mg/dL AST 166 H (5-37) U/L ALT 129 H (0-40) U/L Alkaline Phosphatase 81 (39-117) U/L Troponin I High Sens (<3.5-35.0) ng/L Total Protein 7.9 (6.5-8.0) g/dL Albumin 4.3 (3.5-5.0) g/dL COVID-19 ([facility]) (Negative) COVID-19 Clin Com 10/07/21 10/07/21 Range/Units 00:48 00:48 WBC (4.8-10.8) X10*3/uL RBC (4.60-5.80) X10*6/uL Hgb (14.0-18.0) g/dl Hct (42.0-52.0) % MCV (80.0-98.0) fL MCH (27.0-33.0) pg MCHC (31.0-36.0) g/dl RDW (11.0-16.0) % Plt Count (160-400) X10*3/uL MPV (9.4-12.4) fL Immature Gran % (Auto) (0.0-0.4) % Neut % (Auto) (45-73) % Lymph % (Auto) (20-40) % Robertson % (Auto) (2-11) % Eos % (Auto) (0-4) % Baso % (Auto) (0-2) % Lymph # (Auto) (1.2-4.9) X10*3/uL Robertson # (Auto) (0.1-1.2) X10*3/uL Eos # (Auto) (0.0-0.4) X10*3/uL Baso # (Auto) (0.0-0.2) X10*3/uL Abs Immat Gran (auto) (0.00-0.03) X10*3/uL Absolute Neuts (auto) (2.0-8.3) x10*3/uL Absolute Nucleated RBC (0.0-0.012) X10*3/uL Nucleated RBC % (auto) (0.0-0.2) /100WBC Sodium (135-145) mmol/L Potassium (3.3-5.1) mmol/L Chloride (96-108) mmol/L Carbon Dioxide (22-29) mmol/L Anion Gap (12-20) BUN (9-16) mg/dL Creatinine (0.5-1.4) mg/dL Estim Creat Clear Calc Estimated GFR Random Glucose (60-115) mg/dL Lactic Acid (0.5-2.0) mmol/L Calcium (8.4-10.2) mg/dL Total Bilirubin (0.0-1.0) mg/dL Direct Bilirubin (0.0-0.5) mg/dL AST (5-37) U/L ALT (0-40) U/L Alkaline Phosphatase (39-117) U/L Troponin I High Sens 54.4 H D (<3.5-35.0) ng/L Total Protein (6.5-8.0) g/dL Albumin (3.5-5.0) g/dL COVID-19 ([facility]) Negative (Negative) COVID-19 Clin Com See Note Imaging Data Chest x-ray: Radiologist's impression: Normal appearance of the cardiomediastinal silhouette. Stable mild asymmetric elevation of left hemidiaphragm. No focal airspace opacity, pleural effusion or pneumothorax. No acute osseous abnormalities. The visualized upper abdomen is within normal limits. XR/XR chest 1V IMPRESSION: No acute cardiopulmonary findings. Discharge Plan Discharge Clinical Impression: Chest pain, Substance abuse, Cellulitis of hand Patient Disposition: Admitted As Inpatient Prescriptions: No Action quetiapine [Seroquel] 300 mg Tablet 300 mg PO BEDTIME doxycycline hyclate 100 mg tablet 100 mg PO BID 7 Days Qty: 14 0RF methadone [Methadone Intensol] 10 mg/mL Concentrate 30 mg PO DAILY Qty: 30 0RF
[2021-10-07] MEDS: Aspirin Enteric Coated 325 MG TABLET.DR PO (00:33)
[2021-10-07] MEDS: LORazepam 1 MG TABLET 2 MG PO (00:33)
[2021-10-07] MEDS: 0.9 % Sodium Chloride 1,000 ML 999 ML IVCONT (00:33)
[2021-10-07 00:56] LABS: MANUAL DIFF FLAG NO
[2021-10-07 00:57] LABS: Basophils Percent Auto 0.2 % (0-2); Eosinophils Absolute Auto 0.1 X10*3/uL (0.0-0.4); Eosinophils Percent Auto 0.5 % (0-4); Hematocrit 39.2 % (42.0-52.0); Imm Gran Abs Auto 0.07 X10*3/uL (0.00-0.03); Imm Gran Pct Auto 0.5 % (0.0-0.4); Lymphocytes Absolute Auto 1.2 X10*3/uL (1.2-4.9); Lymphocytes Percent Auto 8.9 % (20-40); Mean Corpuscular HGB Conc 33.2 g/dl (31.0-36.0); Mean Corpuscular Hemoglobin 27.5 pg (27.0-33.0); Mean Corpuscular Volume 82.9 fL (80.0-98.0); Mean Platelet Volume 9.8 fL (9.4-12.4); Monocytes Absolute Auto 0.5 X10*3/uL (0.1-1.2); Monocytes Percent Auto 3.8 % (2-11); Neutrophils Absolute Auto 11.6 x10*3/uL (2.0-8.3); Neutrophils Percent Auto 86.1 % (45-73); Platelet Count 209 X10*3/uL (160-400); Red Blood Count 4.73 X10*6/uL (4.60-5.80); White Blood Count 13.5 X10*3/uL (4.8-10.8)
--- NOTE | 2021-10-07 01:00 | PC.NURSE ---
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 Per pt, just used cocaine and heroine at a bar when pt started not feeling well. Pt concerned that substances may have been laced with something else because he bought it from new dealer Pt states feeling anxious currently Denies any SOB Bilateral hands red and swollen and warm to touch. Per pt, just used both hands to shoot up. AxO x 4, clear and complete sentences Ambulatory Will continue to monitor
[2021-10-07 01:13] LABS: COVID-19 Test Negative (Negative)
--- NOTE | 2021-10-07 01:15 | PC.NURSE ---
Pt medicated per MAR Unable to place PIV. Dr. Kraus aware. Per Dr. Kraus, will wait for labs to result before trying to place IV. PO fluids given and pt encouraged to drink
[2021-10-07 01:18] LABS: Alanine Aminotransferase 129 U/L (0-40); Albumin Level 4.3 g/dL (3.5-5.0); Alkaline Phosphatase 81 U/L (39-117); Anion Gap 18 (12-20); Aspartate Amino Transferase 166 U/L (5-37); Bilirubin Direct 0.3 mg/dL (0.0-0.5); Bilirubin Total 0.8 mg/dL (0.0-1.0); Blood Urea Nitrogen 23 mg/dL (9-16); Calcium 8.6 mg/dL (8.4-10.2); Carbon Dioxide 21 mmol/L (22-29); Chloride 96 mmol/L (96-108); Creatinine Clr Calc Pharmacy 129.6; Estimated Glomerular Filt Rate > 60; Glucose Random 96 mg/dL (60-115); Potassium 4.2 mmol/L (3.3-5.1); Sodium 131 mmol/L (135-145); Total Protein 7.9 g/dL (6.5-8.0); Troponin-I High Sensitivity 54.4 ng/L (<3.5-35.0)
[2021-10-07 01:19] LABS: Lactic Acid 2.3 mmol/L (0.5-2.0)
[2021-10-07] MEDS: Piperacillin Sodium/Tazobactam 3.375 GM in 0.9 % Sodium Chloride 50 ML IV (02:29)
[2021-10-07 02:35] VITALS: BP 113/66; PULSE 111; RESP 17; O2SAT 96
[2021-10-07 02:52] LABS: Reflex Lactate? Lactic Acid Added
[2021-10-07] MEDS: vancomycin HCL 1,000 MG in 0.9 % Sodium Chloride 250 ML 270 MG IV (03:07)
[2021-10-07 03:54] LABS: MANUAL DIFF FLAG NO
[2021-10-07 03:56] LABS: Basophils Percent Auto 0.2 % (0-2); Eosinophils Absolute Auto 0.1 X10*3/uL (0.0-0.4); Eosinophils Percent Auto 0.6 % (0-4); Hematocrit 36.9 % (42.0-52.0); Hemoglobin 12.3 g/dl (14.0-18.0); Imm Gran Abs Auto 0.07 X10*3/uL (0.00-0.03); Imm Gran Pct Auto 0.5 % (0.0-0.4); Lymphocytes Absolute Auto 1.6 X10*3/uL (1.2-4.9); Lymphocytes Percent Auto 10.3 % (20-40); Mean Corpuscular HGB Conc 33.3 g/dl (31.0-36.0); Mean Corpuscular Hemoglobin 27.5 pg (27.0-33.0); Mean Corpuscular Volume 82.4 fL (80.0-98.0); Mean Platelet Volume 9.5 fL (9.4-12.4); Monocytes Absolute Auto 1.1 X10*3/uL (0.1-1.2); Monocytes Percent Auto 7.3 % (2-11); Neutrophils Absolute Auto 12.6 x10*3/uL (2.0-8.3); Neutrophils Percent Auto 81.1 % (45-73); Platelet Count 206 X10*3/uL (160-400); Red Blood Count 4.48 X10*6/uL (4.60-5.80); Red Cell Distribution Width 13.9 % (11.0-16.0); White Blood Count 15.5 X10*3/uL (4.8-10.8)
[2021-10-07 04:04] LABS: ~Lactic Acid-LAB USE ONLY 0.9 mmol/L (0.5-2.0)
[2021-10-07 04:08] LABS: Anion Gap 12 (12-20); Blood Urea Nitrogen 20 mg/dL (9-16); Calcium 8.7 mg/dL (8.4-10.2); Carbon Dioxide 26 mmol/L (22-29); Chloride 98 mmol/L (96-108); Creatinine Clr Calc Pharmacy 125.1; Estimated Glomerular Filt Rate > 60; Glucose Random 117 mg/dL (60-115); Sodium 132 mmol/L (135-145)
[2021-10-07 04:14] LABS: Troponin-I High Sensitivity 35.2 ng/L (<3.5-35.0)
--- NOTE | 2021-10-07 06:33 | P.HPHOSP_ITS ---
History of Present Illness Date of Service: 10/07/21 Chief Complaint: chest pain 31-year-old male with past medical history of polysubstance abuse including heroin cocaine, alcohol, history of hep C who presents to the hospital with complaints of chest pain about half an hour after using cocaine. History is obtained mostly from ED physician as will as patient but he is slightly lethargic and difficult to keep awake. According to the patient he used cocaine about 30 minutes prior to arriving to the ED, he then developed substernal chest pain and therefore decided to come to the hospital. He is also complaining of bilateral redness of the hands, he admits to injecting in these area. Of note patient was discharged from the hospital on 09/28 after being treated for cellulitis of bilateral hands. He reports chills , no nausea or vomiting, no diarrhea constipation. On arrival to the ED patient's vitals are significant for temp of 99.6 degrees, heart rate of 113, respiratory rate of 18 blood pressure of 123/54 satting 96% on room air Labs was admitted for WBC count of 13.5, hemoglobin 13.0, hematocrit of 39.2, lactic acid of 2.3, troponin of 54.4, then increase to 35.2, chest x-ray shows no acute cardiopulmonary finding EKG shows nonspecific ST T wave changes the of also present on previous EKG patient will be admitted for further management Review of Systems Review of Systems: Yes all other systems are reviewed and are negative and Unobtainable due to mental condition [facility] Medical History Hepatitis C Opioid use disorder Surgical History No pertinent past surgical history Social History Household Members: None Housing: Apartment Do you presently have visiting nurse or other home services: No Alcohol intake: current Alcohol intake frequency: 3 or more drinks per day Patient Tobacco Use Status: Former Tobacco user Substance Use Type: Crack/Cocaine, IV Drugs and Opiates Advance Directives: No Advance Directives Information Provided: Yes service: No Current occupational status: unemployed Meds Allergies Allergy/AdvReac Type Severity Reaction Status Date / Time No Known Allergies Allergy Unverified 01/06/20 18:48 [No Known Allergies*] Active Medications: Current Medications Acetaminophen (Acetaminophen 325 Mg Tablet) 650 mg PO Q6H PRN PRN Reason: Pain, Mild (Pain Scale 1-3) Cefazolin Sodium/Dextrose (Ancef) 2 gm in 50 mls @ 100 mls/hr IV Q8H [facility] Sodium Chloride (0.9 % Sodium Chloride Flush 3 Ml Syringe) 3 ml IVFLUSH QSHIFT [facility] Home Medications Medication Instructions Recorded Confirmed Last Taken Type quetiapine 300 mg tablet (Seroquel) 300 mg PO BEDTIME 09/27/21 10/07/21 Unknown History Physical Exam Vital Signs and Narrative: Vital Signs: Last Vital Signs Temp 99.6 F 10/07/21 00:08 Pulse 111 H 10/07/21 02:35 Resp 17 10/07/21 02:35 BP 113/66 10/07/21 02:35 Pulse Ox 96 10/07/21 02:35 O2 Del Method 10/07/21 05:18 BMI result Body Mass Index 29.7 Const: Other: somnolent but arousable, answers questions appropriately General: cooperative and no acute distress Eyes: General: appearance normal, both eyes and all related structures Resp: Effort & Inspection: normal respiratory effort Auscultation: clear to auscultation bilaterally Cardio: Rate: regular rate Rhythm: regular rhythm GI: Palpation (GI): Soft to palpation Auscultation: normal bowel sounds Skin: Other: has bilateral erythema, warmth, and edema in hands, injection sites apparent Neuro: Cognition (Neuro): normal cognition Extrem: General: Yes normal to inspection and Yes no pedal edema Results Labs CBC and Chem 7: 10/07/21 03:37 10/07/21 03:37 Labs: Laboratory Results - last 24 hr 10/07/21 10/07/21 10/07/21 00:48 00:48 00:48 MCV 82.9 MCH 27.5 MCHC 33.2 RDW 14.0 Plt Count 209 D MPV 9.8 Immature Gran % (Auto) 0.5 H Neut % (Auto) 86.1 H Lymph % (Auto) 8.9 L Desha % (Auto) 3.8 Eos % (Auto) 0.5 Baso % (Auto) 0.2 Lymph # (Auto) 1.2 Desha # (Auto) 0.5 Eos # (Auto) 0.1 Baso # (Auto) 0.0 Abs Immat Gran (auto) 0.07 H Absolute Neuts (auto) 11.6 H Absolute Nucleated RBC 0.000 Nucleated RBC % (auto) 0.0 Anion Gap 18 Estim Creat Clear Calc 129.6 Estimated GFR > 60 Random Glucose 96 Lactic Acid 2.3 H* Lactic Acid F/U @ 2Hr Calcium 8.6 Total Bilirubin 0.8 Direct Bilirubin 0.3 AST 166 H ALT 129 H Alkaline Phosphatase 81 Troponin I High Sens Total Protein 7.9 Albumin 4.3 COVID-19 ([facility]) COVID-19 Clin Com 10/07/21 10/07/21 10/07/21 00:48 00:48 03:37 MCV MCH MCHC RDW Plt Count MPV Immature Gran % (Auto) Neut % (Auto) Lymph % (Auto) Desha % (Auto) Eos % (Auto) Baso % (Auto) Lymph # (Auto) Desha # (Auto) Eos # (Auto) Baso # (Auto) Abs Immat Gran (auto) Absolute Neuts (auto) Absolute Nucleated RBC Nucleated RBC % (auto) Anion Gap Estim Creat Clear Calc Estimated GFR Random Glucose Lactic Acid Lactic Acid F/U @ 2Hr Calcium Total Bilirubin Direct Bilirubin AST ALT Alkaline Phosphatase Troponin I High Sens 54.4 H D 35.2 H Total Protein Albumin COVID-19 ([facility]) Negative COVID-19 Clin Com See Note 10/07/21 10/07/21 10/07/21 03:37 03:37 03:40 MCV 82.4 MCH 27.5 MCHC 33.3 RDW 13.9 Plt Count 206 MPV 9.5 Immature Gran % (Auto) 0.5 H Neut % (Auto) 81.1 H Lymph % (Auto) 10.3 L Desha % (Auto) 7.3 Eos % (Auto) 0.6 Baso % (Auto) 0.2 Lymph # (Auto) 1.6 Desha # (Auto) 1.1 Eos # (Auto) 0.1 Baso # (Auto) 0.0 Abs Immat Gran (auto) 0.07 H Absolute Neuts (auto) 12.6 H Absolute Nucleated RBC 0.000 Nucleated RBC % (auto) 0.0 Anion Gap 12 Estim Creat Clear Calc 125.1 Estimated GFR > 60 Random Glucose 117 H Lactic Acid Lactic Acid F/U @ 2Hr 0.9 Calcium 8.7 Total Bilirubin Direct Bilirubin AST ALT Alkaline Phosphatase Troponin I High Sens Total Protein Albumin COVID-19 ([facility]) COVID-19 Clin Com Imaging Radiologist's Impressions: Impressions Chest X-Ray 10/07/21 00:27 IMPRESSION: No acute cardiopulmonary findings. Assessment and Plan (1) Chest pain: Status: Acute (2) Substance abuse: Status: Acute (3) Cellulitis of hand: Status: Acute Plan 31-year-old male IV drug user as well as positive since abuse who presents to the hospital with chest pain after using cocaine found to have hand cellulitis # chest pain - likely secondary to cocaine - had elevated troponin, but trended down - no EKG changes suggestive of ACS - will monitor # cellulitis of hand - has, warmth, tenderness as well as edema of the hands bilaterally - there are multiple injection sites on hands - of note patient was discharged on 09/28 after being treated for the same - patient on IV antibiotics - cultures # substance abuse including cocaine, heroin, as well as alcohol - will continue methadone - will place on CIWA, as pt does not appear to be withdrawing from alcohol at this time and somewhat somnolent therefore will not initiate phenobarb DVT prophylaxis:lovenox Quality Stroke Does the patient have a stroke diagnosis?: No VTE Prior VTE?: No VTE Risk Level:: Medical - low VTE Device Contraindication: Treatment Not Indicated VTE Drug Contraindication: Treatment Not Indicated
[2021-10-07] MEDS: ceFAZolin Sodium/Dextrose,Iso 2 GM/50 ML PIGGYBACK IV ×3 (06:36→22:03)
--- NOTE | 2021-10-07 08:05 | PHA.MEDREC ---
Pharmacy Consult ? Medication Reconciliation Pharmacy has completed the medication reconciliation. Patient states they have not taken doxycycline, methadone or seroquel since he has left. Will empty med list to reflect that. Thanks Gm
--- NOTE | 2021-10-07 08:37 | PC.NURSE ---
sleeping, skin pwd. chest rise noted.
--- NOTE | 2021-10-07 09:19 | PHA.PROG ---
Admission Date/Time: October 07, 2021 03:10 Indication: SKIN Weight in k.183 kg Adjusted body weight in K.133 [place] body weight in K.1 Obesity Dosing Indication % IBW: Serum Creatinine - Last 168 Hours 10/07/21 10/07/21 00:48 03:37 Creatinine 0.85 0.88 Estimated CrCl and GFR - Last 168 Hours 10/07/21 10/07/21 00:48 03:37 Estim Creat Clear Calc 129.6 125.1 Estimated GFR > 60 > 60 Vancomycin Loading Dose: 1000MG Current Vancomycin Dosing Regimen: 1250MG Q12H Vancomycin Monitoring using AUC goal of 400 - 600 range with trough as surrogate marker: AUC 556; 15.3 Date and Time for next Vancomycin Level to be drawn: 10/08 @0800 Pharmacist Comments on Vancomycin Plan: Patient loading dose was very low (11 mg/kg) Patient scr is 0.88. To reach therapuetic levels quicker, I will be starting their dosing regimen 7 hours after the load Vancomycin dosing will take advantage of [employer] as a clinical decision support tool that uses Bayesian modeling to calculate individual patient's pharmacokinetic parameters and forecast the patient's drug concentration time course with the target goal AUC 24 range of 400 - 600 mg/L/hr.
[2021-10-07 10:29] VITALS: BP 122/40; PULSE 85; RESP 18; TEMP 36.6; O2SAT 97
[2021-10-07] MEDS: methADONE HCl 20 MG/2 ML ORAL.CONC 30 MG PO (10:35)
[2021-10-07] MEDS: vancomycin HCL 1,250 MG in 0.9 % Sodium Chloride 250 ML 166.67 MG IV ×2 (10:38→22:37)
--- NOTE | 2021-10-07 10:41 | PC.NURSE ---
pT HAS BEEN sleeping most of morning. easily arousable to voice. skin slightly moist. states he has spoken with recovery coaches. is aware of plan for iv abx. very sml areas of inflammation/redness noted on BUEs. Pt states he last used opiates and Etoh just before arrival to ED.
--- NOTE | 2021-10-07 10:57 | PM.EVENT ---
Event Note Date of Service: 10/07/21 Event Note: day hospitalist update S painful, red, swollen hands bilaterally chest pain resolved no fever O Vital Signs Temperature 97.8 F 10/07/21 10:29 Pulse Rate 85 10/07/21 10:29 Respiratory Rate 18 10/07/21 10:29 Blood Pressure 122/40 L 10/07/21 10:29 Pulse Oximetry 97 10/07/21 10:29 Oxygen Delivery Method 10/07/21 10:29 gen- NAD lungs- CTAB CV- RRR no murmurs abd- soft/NT ext- bilateral dorsal erythema/induration/warmth of hands without fluctuance, neurovascularly intact neuro- no focal findings Laboratory Results - last 24 hr 10/07/21 10/07/21 10/07/21 00:48 00:48 00:48 WBC 13.5 H RBC 4.73 Hgb 13.0 L Hct 39.2 L MCV 82.9 MCH 27.5 MCHC 33.2 RDW 14.0 Plt Count 209 D MPV 9.8 Immature Gran % (Auto) 0.5 H Neut % (Auto) 86.1 H Lymph % (Auto) 8.9 L Hanson % (Auto) 3.8 Eos % (Auto) 0.5 Baso % (Auto) 0.2 Lymph # (Auto) 1.2 Hanson # (Auto) 0.5 Eos # (Auto) 0.1 Baso # (Auto) 0.0 Abs Immat Gran (auto) 0.07 H Absolute Neuts (auto) 11.6 H Absolute Nucleated RBC 0.000 Nucleated RBC % (auto) 0.0 Sodium 131 L Potassium 4.2 D Chloride 96 Carbon Dioxide 21 L Anion Gap 18 BUN 23 H D Creatinine 0.85 Estim Creat Clear Calc 129.6 Estimated GFR > 60 Random Glucose 96 Lactic Acid 2.3 H* Lactic Acid F/U @ 2Hr Calcium 8.6 Total Bilirubin 0.8 Direct Bilirubin 0.3 AST 166 H ALT 129 H Alkaline Phosphatase 81 Troponin I High Sens Total Protein 7.9 Albumin 4.3 COVID-19 ([facility]) COVID-19 Clin Com 10/07/21 10/07/21 10/07/21 00:48 00:48 03:37 WBC RBC Hgb Hct MCV MCH MCHC RDW Plt Count MPV Immature Gran % (Auto) Neut % (Auto) Lymph % (Auto) Hanson % (Auto) Eos % (Auto) Baso % (Auto) Lymph # (Auto) Hanson # (Auto) Eos # (Auto) Baso # (Auto) Abs Immat Gran (auto) Absolute Neuts (auto) Absolute Nucleated RBC Nucleated RBC % (auto) Sodium Potassium Chloride Carbon Dioxide Anion Gap BUN Creatinine Estim Creat Clear Calc Estimated GFR Random Glucose Lactic Acid Lactic Acid F/U @ 2Hr Calcium Total Bilirubin Direct Bilirubin AST ALT Alkaline Phosphatase Troponin I High Sens 54.4 H D 35.2 H Total Protein Albumin COVID-19 ([facility]) Negative COVID-19 Clin Com See Note 10/07/21 10/07/21 10/07/21 03:37 03:37 03:40 WBC 15.5 H RBC 4.48 L Hgb 12.3 L Hct 36.9 L MCV 82.4 MCH 27.5 MCHC 33.3 RDW 13.9 Plt Count 206 MPV 9.5 Immature Gran % (Auto) 0.5 H Neut % (Auto) 81.1 H Lymph % (Auto) 10.3 L Hanson % (Auto) 7.3 Eos % (Auto) 0.6 Baso % (Auto) 0.2 Lymph # (Auto) 1.6 Hanson # (Auto) 1.1 Eos # (Auto) 0.1 Baso # (Auto) 0.0 Abs Immat Gran (auto) 0.07 H Absolute Neuts (auto) 12.6 H Absolute Nucleated RBC 0.000 Nucleated RBC % (auto) 0.0 Sodium 132 L Potassium 4.0 Chloride 98 Carbon Dioxide 26 Anion Gap 12 BUN 20 H Creatinine 0.88 Estim Creat Clear Calc 125.1 Estimated GFR > 60 Random Glucose 117 H Lactic Acid Lactic Acid F/U @ 2Hr 0.9 Calcium 8.7 Total Bilirubin Direct Bilirubin AST ALT Alkaline Phosphatase Troponin I High Sens Total Protein Albumin COVID-19 ([facility]) COVID-19 Clin Com A/P hospital d#1 31yo M with hx IV drug abuse [cocaine, opioids] + AUD recently admitted here 09/27-09/28/21 for bilateral hand cellulitis re-admitted for same # hand cellulitis associated with injection drug abuse - cefazolin + vancomycin d#1, follow BCx - no hx bacteremia or endocarditis - no drainable collections on clinical exam # cocaine-related chest pain - Tn-I decreasing - avoid cocaine # polysubstance abuse - continue methadone - CARE team consult - monitor for EtOH withdrawal - update screen for HCV [viral load since Ab+], HBV, and HIV # VTE ppx - LMWH
--- NOTE | 2021-10-07 15:33 | MHC.RECOVSUP ---
Recovery Support note: Patient is a 31 year old Samoan speaking male who presented to [facility] ED due to an infection. 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 Patient was sent to [facility] on 09/28 after discharging from the medical floor. Patient reports he made it to the facility however did not remain in treatment and left to use. Patient reports he went to a methadone clinic in [place] ([facility]) once since discharge. Patient was given 30mg of methadone this morning and reports no withdrawal at this time. Recovery Support Team will follow up with patient later in hospital visit to discuss recovery supports and to provide resources and referrals as needed.
[2021-10-07 17:04] VITALS: BP 126/56; PULSE 84; RESP 15; O2SAT 98
[2021-10-07 20:00] VITALS: BP 126/66; PULSE 75; RESP 18; TEMP 36.6; O2SAT 100
[2021-10-07] MEDS: diphenhydrAMINE HCL 25 MG TABLET PO (22:09)
[2021-10-08] VITALS: BP 124/60; PULSE 85; RESP 17; TEMP 37.1; O2SAT 100
[2021-10-08 04:00] VITALS: PULSE 82; RESP 17; TEMP 36.5; O2SAT 98
[2021-10-08] MEDS: ceFAZolin Sodium/Dextrose,Iso 2 GM/50 ML PIGGYBACK IV ×3 (06:14→21:00)
[2021-10-08] MEDS: 0.9 % Sodium Chloride Flush 3 ML SYRINGE IVFLUSH ×4 (06:15→21:03)
[2021-10-08 07:57] LABS: Hematocrit 37.7 % (42.0-52.0); Hemoglobin 12.4 g/dl (14.0-18.0); Mean Corpuscular HGB Conc 32.9 g/dl (31.0-36.0); Mean Corpuscular Hemoglobin 27.7 pg (27.0-33.0); Mean Corpuscular Volume 84.3 fL (80.0-98.0); Mean Platelet Volume 9.9 fL (9.4-12.4); Platelet Count 191 X10*3/uL (160-400); Red Blood Count 4.47 X10*6/uL (4.60-5.80); Red Cell Distribution Width 14.1 % (11.0-16.0); White Blood Count 5.8 X10*3/uL (4.8-10.8)
[2021-10-08 08:00] VITALS: BP 108/51; PULSE 70; RESP 18; TEMP 36.4; O2SAT 97
[2021-10-08 08:15] LABS: Alanine Aminotransferase 110 U/L (0-40); Albumin Level 3.6 g/dL (3.5-5.0); Alkaline Phosphatase 76 U/L (39-117); Anion Gap 11 (12-20); Aspartate Amino Transferase 107 U/L (5-37); Bilirubin Total 0.2 mg/dL (0.0-1.0); Blood Urea Nitrogen 18 mg/dL (9-16); Calcium 8.9 mg/dL (8.4-10.2); Carbon Dioxide 24 mmol/L (22-29); Chloride 106 mmol/L (96-108); Creatinine Clr Calc Pharmacy 146.8; Estimated Glomerular Filt Rate > 60; Glucose Random 104 mg/dL (60-115); Potassium 4.6 mmol/L (3.3-5.1); Sodium 136 mmol/L (135-145); Total Protein 6.5 g/dL (6.5-8.0)
[2021-10-08 08:26] LABS: Vancomycin Trough 10.3 mcg/mL (10.0-20.0)
[2021-10-08 08:36] LABS: HBsAGNum1 0.23 S/CO (0.00-0.99); HIV AB/AG Nonreactive (Nonreactive); HIV Num 1 0.14 S/CO (0.00-0.99); Hepatitis B Surface Antigen Negative (Negative); ~Hepatitis B Surface Antibody NONREACTIVE (Nonreactive)
[2021-10-08] MEDS: methADONE HCl 20 MG/2 ML ORAL.CONC 30 MG PO (08:46)
--- NOTE | 2021-10-08 08:59 | HE.PHANOTE ---
Patient trough came back at 10.3, renal function improving, auc subtherapeutic, increased to 1500 mg q12, predicted auc is 469, trough 11.3, next level
[2021-10-08 09:53] LABS: HBc Num2 1.25 S/CO; HBc Num3 1.19 S/CO
[2021-10-08 09:54] LABS: Hepatitis B Core Antibody Reactive (Nonreactive)
[2021-10-08 10:03] LABS: Vancomycin Trough 7.9 mcg/mL (10.0-20.0)
--- NOTE | 2021-10-08 10:14 | MHC.RECOVRN ---
Met with pt in 462 to discuss treatment options. Upon entering room, pt sitting in bed, awake, alert, easily engaged in conversation. Pt is currently receiving 30 mg methadone daily. Pt appears diaphoretic and slightly restless but did eat breakfast. T/w spoke with [facility] in [place] and pt had not presented to the [facility]. Pt is in their system but has never received a dose. Pt would like to continue methadone and increase while here. Pt reports desire to go to [facility] in [place] and to continue methadone at [facility]. T/w discussed other options, including [facility] and [facility], and pt is agreeable to [facility] referrals. Pt plans to call [facility] on 10/09 to inquire about a bed as well. T/w was refer to [facility] facilities. Discussed with Nadia Beebe APRN. Will continue to follow.
[2021-10-08] MEDS: vancomycin HCL 1,500 MG in 0.9 % Sodium Chloride 500 ML 333.33 MG IV ×2 (10:38→21:59)
--- NOTE | 2021-10-08 10:52 | MHC.RECOVRN ---
Addendum entered by Trisha Prieto 10/08/21 10:58: Also sent to [address]. Original Note: Referral has been sent to [facility] re [facility] bed.
[2021-10-08 11:05] VITALS: BP 127/47; PULSE 70; RESP 18; TEMP 36.3; O2SAT 98
--- NOTE | 2021-10-08 11:18 | P.PNIM_ITS ---
Subjective Subjective Date of Service: 10/08/21 Interval History: Hand pain/swelling/redness improved No fever Chest pain resolved Review of Systems Review of Systems: Yes all other systems are reviewed and are negative Physical Exam Vital Signs: Vital Signs: Last Vital Signs Temp 97.4 F 10/08/21 11:05 Pulse 70 10/08/21 11:05 Resp 18 10/08/21 11:05 BP 127/47 L 10/08/21 11:05 Pulse Ox 98 10/08/21 11:05 O2 Del Method 10/08/21 11:05 BMI result Body Mass Index 29.7 gen- NAD lungs- CTAB CV- RRR no murmurs abd- soft/NT ext- bilateral dorsal erythema/induration/warmth of hands without fluctuance, neurovascularly intact, improved from yesterday neuro- no focal findings Objective Data Active Medications Acetaminophen (Acetaminophen 325 Mg Tablet) 650 mg PO Q6H PRN PRN Reason: Pain, Mild (Pain Scale 1-3) Cefazolin Sodium/Dextrose (Ancef) 2 gm in 50 mls @ 100 mls/hr IV Q8H [facility] Last Infusion: 10/08/21 07:00 Dose: 0 mls/hr Documented By: MELIDA Vancomycin HCl 1,500 mg/ (Sodium Chloride) 500 mls @ 333.333 mls/hr IV Q12H [facility] Last Admin: 10/08/21 10:38 Dose: 333.33 mls/hr Documented By: YOVANI Methadone HCl (Methadone Hcl 20 Mg/2 Ml Oral.Conc) 30 mg PO DAILY [facility] Last Admin: 10/08/21 08:46 Dose: 30 mg Documented By: YOVANI Pharmacy Consult (Consult Rx Vancomycin Dosing) 1 each MISCELLANE DAILY [facility] Sodium Chloride (0.9 % Sodium Chloride Flush 3 Ml Syringe) 3 ml IVFLUSH QSHIFT [facility] Last Admin: 10/08/21 08:46 Dose: 3 ml Documented By: YOVANI Labs CBC & Chem 7: 10/08/21 07:44 10/08/21 07:44 Labs: Laboratory Results - last 24 hr 10/08/21 10/08/21 10/08/21 07:44 07:44 07:44 MCV 84.3 MCH 27.7 MCHC 32.9 RDW 14.1 Plt Count 191 MPV 9.9 Absolute Nucleated RBC 0.000 Nucleated RBC % (auto) 0.0 Anion Gap 11 L Estim Creat Clear Calc 146.8 Estimated GFR > 60 Random Glucose 104 Calcium 8.9 Total Bilirubin 0.2 AST 107 H ALT 110 H Alkaline Phosphatase 76 Total Protein 6.5 Albumin 3.6 Vancomycin Trough 10.3 Hep Bs Antigen Hep Bs Antibody Hep B Core Total Ab HIV 1&2 Ab/P24 Ag 4thGn 10/08/21 10/08/21 07:45 09:29 MCV MCH MCHC RDW Plt Count MPV Absolute Nucleated RBC Nucleated RBC % (auto) Anion Gap Estim Creat Clear Calc Estimated GFR Random Glucose Calcium Total Bilirubin AST ALT Alkaline Phosphatase Total Protein Albumin Vancomycin Trough 7.9 L Hep Bs Antigen Negative Hep Bs Antibody NONREACTIVE Hep B Core Total Ab Reactive HIV 1&2 Ab/P24 Ag 4thGn Nonreactive Microbiology Microbiology Results: Microbiology 10/07/21 00:48 Blood Culture - Preliminary Blood - Venous No growth after 24 hours. 10/07/21 00:48 Blood Culture - Preliminary Blood - Venous No growth after 24 hours. Assessment and Plan (1) Cellulitis of hand: Status: Acute Assessment and Plan: hospital d#2 31yo M with hx IV drug abuse [cocaine, opioids] + AUD recently admitted here 09/27-09/28/21 for bilateral hand cellulitis re-admitted for same # hand cellulitis associated with injection drug abuse - cefazolin + vancomycin d#2, follow BCx - no hx bacteremia or endocarditis - no drainable collections on clinical exam # cocaine-related chest pain - Tn-I decreasing - avoid cocaine # polysubstance abuse - continue methadone - CARE team + Addiction Medicine consults - monitor for EtOH withdrawal # HCV Ab positive - HCV RNA pending - isolated anti-HBc positive - HIV negative # VTE ppx - LMWH Quality Stroke Does the patient have a stroke diagnosis?: No VTE Prior VTE?: No VTE Risk Level:: Medical - low VTE Device Contraindication: Treatment Not Indicated VTE Drug Contraindication: Treatment Not Indicated
--- NOTE | 2021-10-08 11:58 | MHC.CM.PN ---
met with pt who was seen by care team pt hbas no pcp phamplet of pcps given to pt dc plan home with care team imcurtis has own ride home
[2021-10-08] MEDS: hydrOXYzine HCL 50 MG TABLET PO (12:18)
--- NOTE | 2021-10-08 12:35 | HO.ADDICT_ITS ---
History of Present Illness Date of Service: 10/08/2021 Chief Complaint: Cellulitis Reason for Consult: cocaine use disorder Requesting physician: Nando Chow Sources of Information: patient interviewed and chart reviewed HPI Narrative: Patient is a 31 year old male currently medically admitted with cellulitis of the hand secondary to IVDU. Patient know to Recovery support support via previousl admissions, most recent last week when he was admitted to [facility] from [facility]. Patient states he was doscharged from [facility] Friday and presented to hospital on Friday. Discussed opioid use, he reports use has decreased significantly, however, still experiencing some withdrawal sx in the evenings (sweating, restless). Patient reporting that cocaine cravings continue to be a challenge for him. Reviewed treatment history and longest period in recovery (over a year) while patient was living [place] and working FT. Methadone highest dose was 90mg. No history of medications or treatment for cocaine use disorder. Currently patient is unstably housed and has no supports, including family. He is reporting depression, low self worth, decreased motivation, and anxiety---could be related to stimulant withdrawal . Would like to transition to [facility] from this admission and hopefully just keep going from there . Review of Systems Constitutional: Reports as per HPI and Reports no additional constitutional complaints Diagnostics Vital Signs (24Hr): Vital Signs - 24 hr 10/07/21 17:04 10/07/21 20:00 10/08/21 00:00 Temperature 97.8 F 98.8 F Pulse Rate 84 75 85 Respiratory Rate 15 18 17 Blood Pressure 126/56 L 126/66 124/60 Pulse Oximetry 98 100 100 Oxygen Delivery Method Room Air Room Air Room Air 10/08/21 04:00 10/08/21 08:00 10/08/21 11:05 Temperature 97.7 F 97.6 F 97.4 F Pulse Rate 82 70 70 Respiratory Rate 17 18 18 Blood Pressure 108/51 L 127/47 L Pulse Oximetry 98 97 98 Oxygen Delivery Method Room Air Room Air Room Air BMI result Body Mass Index 29.7 Labs Results: 10/08/21 07:44 10/08/21 07:44 Labs: Laboratory Results - last 48 hr 10/07/21 10/07/21 10/07/21 00:48 00:48 00:48 WBC 13.5 H RBC 4.73 Hgb 13.0 L Hct 39.2 L MCV 82.9 MCH 27.5 MCHC 33.2 RDW 14.0 Plt Count 209 D MPV 9.8 Immature Gran % (Auto) 0.5 H Neut % (Auto) 86.1 H Lymph % (Auto) 8.9 L York % (Auto) 3.8 Eos % (Auto) 0.5 Baso % (Auto) 0.2 Lymph # (Auto) 1.2 York # (Auto) 0.5 Eos # (Auto) 0.1 Baso # (Auto) 0.0 Abs Immat Gran (auto) 0.07 H Absolute Neuts (auto) 11.6 H Absolute Nucleated RBC 0.000 Nucleated RBC % (auto) 0.0 Sodium 131 L Potassium 4.2 D Chloride 96 Carbon Dioxide 21 L Anion Gap 18 BUN 23 H D Creatinine 0.85 Estim Creat Clear Calc 129.6 Estimated GFR > 60 Random Glucose 96 Lactic Acid 2.3 H* Lactic Acid F/U @ 2Hr Calcium 8.6 Total Bilirubin 0.8 Direct Bilirubin 0.3 AST 166 H ALT 129 H Alkaline Phosphatase 81 Troponin I High Sens Total Protein 7.9 Albumin 4.3 Vancomycin Trough COVID-19 ([facility]) COVID-19 Clin Com Hep Bs Antigen Hep Bs Antibody Hep B Core Total Ab HIV 1&2 Ab/P24 Ag 4thGn 10/07/21 10/07/21 10/07/21 00:48 00:48 03:37 WBC RBC Hgb Hct MCV MCH MCHC RDW Plt Count MPV Immature Gran % (Auto) Neut % (Auto) Lymph % (Auto) York % (Auto) Eos % (Auto) Baso % (Auto) Lymph # (Auto) York # (Auto) Eos # (Auto) Baso # (Auto) Abs Immat Gran (auto) Absolute Neuts (auto) Absolute Nucleated RBC Nucleated RBC % (auto) Sodium Potassium Chloride Carbon Dioxide Anion Gap BUN Creatinine Estim Creat Clear Calc Estimated GFR Random Glucose Lactic Acid Lactic Acid F/U @ 2Hr Calcium Total Bilirubin Direct Bilirubin AST ALT Alkaline Phosphatase Troponin I High Sens 54.4 H D 35.2 H Total Protein Albumin Vancomycin Trough COVID-19 ([facility]) Negative COVID-19 Clin Com See Note Hep Bs Antigen Hep Bs Antibody Hep B Core Total Ab HIV 1&2 Ab/P24 Ag 4thGn 10/07/21 10/07/21 10/07/21 03:37 03:37 03:40 WBC 15.5 H RBC 4.48 L Hgb 12.3 L Hct 36.9 L MCV 82.4 MCH 27.5 MCHC 33.3 RDW 13.9 Plt Count 206 MPV 9.5 Immature Gran % (Auto) 0.5 H Neut % (Auto) 81.1 H Lymph % (Auto) 10.3 L York % (Auto) 7.3 Eos % (Auto) 0.6 Baso % (Auto) 0.2 Lymph # (Auto) 1.6 York # (Auto) 1.1 Eos # (Auto) 0.1 Baso # (Auto) 0.0 Abs Immat Gran (auto) 0.07 H Absolute Neuts (auto) 12.6 H Absolute Nucleated RBC 0.000 Nucleated RBC % (auto) 0.0 Sodium 132 L Potassium 4.0 Chloride 98 Carbon Dioxide 26 Anion Gap 12 BUN 20 H Creatinine 0.88 Estim Creat Clear Calc 125.1 Estimated GFR > 60 Random Glucose 117 H Lactic Acid Lactic Acid F/U @ 2Hr 0.9 Calcium 8.7 Total Bilirubin Direct Bilirubin AST ALT Alkaline Phosphatase Troponin I High Sens Total Protein Albumin Vancomycin Trough COVID-19 ([facility]) COVID-19 Clin Com Hep Bs Antigen Hep Bs Antibody Hep B Core Total Ab HIV 1&2 Ab/P24 Ag 4thGn 10/08/21 10/08/21 10/08/21 07:44 07:44 07:44 WBC 5.8 RBC 4.47 L Hgb 12.4 L Hct 37.7 L MCV 84.3 MCH 27.7 MCHC 32.9 RDW 14.1 Plt Count 191 MPV 9.9 Immature Gran % (Auto) Neut % (Auto) Lymph % (Auto) York % (Auto) Eos % (Auto) Baso % (Auto) Lymph # (Auto) York # (Auto) Eos # (Auto) Baso # (Auto) Abs Immat Gran (auto) Absolute Neuts (auto) Absolute Nucleated RBC 0.000 Nucleated RBC % (auto) 0.0 Sodium 136 Potassium 4.6 Chloride 106 Carbon Dioxide 24 Anion Gap 11 L BUN 18 H Creatinine 0.75 Estim Creat Clear Calc 146.8 Estimated GFR > 60 Random Glucose 104 Lactic Acid Lactic Acid F/U @ 2Hr Calcium 8.9 Total Bilirubin 0.2 Direct Bilirubin AST 107 H ALT 110 H Alkaline Phosphatase 76 Troponin I High Sens Total Protein 6.5 Albumin 3.6 Vancomycin Trough 10.3 COVID-19 ([facility]) COVID-19 Clin Com Hep Bs Antigen Hep Bs Antibody Hep B Core Total Ab HIV 1&2 Ab/P24 Ag 4thGn 10/08/21 10/08/21 07:45 09:29 WBC RBC Hgb Hct MCV MCH MCHC RDW Plt Count MPV Immature Gran % (Auto) Neut % (Auto) Lymph % (Auto) York % (Auto) Eos % (Auto) Baso % (Auto) Lymph # (Auto) [place] # (Auto) Eos # (Auto) Baso # (Auto) Abs Immat Gran (auto) Absolute Neuts (auto) Absolute Nucleated RBC Nucleated RBC % (auto) Sodium Potassium Chloride Carbon Dioxide Anion Gap BUN Creatinine Estim Creat Clear Calc Estimated GFR Random Glucose Lactic Acid Lactic Acid F/U @ 2Hr Calcium Total Bilirubin Direct Bilirubin AST ALT Alkaline Phosphatase Troponin I High Sens Total Protein Albumin Vancomycin Trough 7.9 L COVID-19 ([facility]) COVID-19 Clin Com Hep Bs Antigen Negative Hep Bs Antibody NONREACTIVE Hep B Core Total Ab Reactive HIV 1&2 Ab/P24 Ag 4thGn Nonreactive Imaging Radiology Impressions: ITS Impressions Chest X-Ray 10/07/21 00:27 IMPRESSION: No acute cardiopulmonary findings. Mental Status Exam Mental Status Exam Patient Appearance: Unkempt Level of Consciousness: Awake, Appropriate and Alert Patient Behavior: Appropriate Thought Process: Rumination and Goal Oriented Judgement: Fair Medications Medications Current Medications Acetaminophen (Acetaminophen 325 Mg Tablet) 650 mg PO Q6H PRN PRN Reason: Pain, Mild (Pain Scale 1-3) Hydroxyzine HCl (Hydroxyzine Hcl 50 Mg Tablet) 50 mg PO Q8H PRN PRN Reason: anxiety/restlessness Last Admin: 10/08/21 12:18 Dose: 50 mg Cefazolin Sodium/Dextrose (Ancef) 2 gm in 50 mls @ 100 mls/hr IV Q8H [facility] Last Infusion: 10/08/21 07:00 Dose: Infused Vancomycin HCl 1,500 mg/ (Sodium Chloride) 500 mls @ 333.333 mls/hr IV Q12H [facility] Last Infusion: 10/08/21 12:18 Dose: Infused Methadone HCl (Methadone Hcl 20 Mg/2 Ml Oral.Conc) 40 mg PO DAILY [facility] Pharmacy Consult (Consult Rx Vancomycin Dosing) 1 each MISCELLANE DAILY [facility] Sodium Chloride (0.9 % Sodium Chloride Flush 3 Ml Syringe) 3 ml IVFLUSH QSHIFT [facility] Last Admin: 10/08/21 08:46 Dose: 3 ml Allergies Allergies Allergy/AdvReac Type Severity Reaction Status Date / Time No Known Allergies Allergy Unverified 01/06/20 18:48 [No Known Allergies*] Assessment & Plan Assessment & Plan (1) Opioid use disorder: Code(s): F11.90 - Opioid use, unspecified, uncomplicated Assessment and Plan: * methadone 5mg once * methadone increased to 40mg QD tmrw (10/09) * hydroxyzine for anxiety PRN (2) Cocaine use disorder: Status: Acute Code(s): F14.10 - Cocaine abuse, uncomplicated Assessment and Plan: * currently limited evidence for pharmacotherapy and treating stimulant use disorders . Mirtazipine, topomax have shown some benefit; however, patient does not have any treatment providers in place in the community. Contingency management most effective * managing withdrawal sx most beneficial during this admission, while RSRN works to refer patient to [facility] I spent __35____ minutes with the patient and/or on the patient floor today, greater than?50% of which was spent counseling/coordinating care. PMFSH Past Medical History Medical History Hepatitis C Opioid use disorder Surgical History Surgical History No pertinent past surgical history Social History Social History Household Members: Family Housing: Apartment Do you presently have visiting nurse or other home services: No Alcohol intake: current Alcohol intake frequency: 3 or more drinks per day Patient Tobacco Use Status: Never used Tobacco Substance Use Type: Crack/Cocaine and Heroin service: No Current occupational status: unemployed
[2021-10-08] MEDS: methADONE HCl 20 MG/2 ML ORAL.CONC 5 MG PO (13:05)
[2021-10-08 14:43] VITALS: BP 129/61; PULSE 74; RESP 20; TEMP 37; O2SAT 100
[2021-10-08 20:00] VITALS: BP 121/59; PULSE 68; RESP 17; TEMP 36.6; O2SAT 100
[2021-10-08] MEDS: diphenhydrAMINE HCL 25 MG TABLET PO (21:00)
[2021-10-09] VITALS: BP 133/65; PULSE 63; RESP 15; TEMP 36.3; O2SAT 99
[2021-10-09 03:39] VITALS: BP 114/59; PULSE 59; RESP 15; TEMP 36.3; O2SAT 100
[2021-10-09] MEDS: ceFAZolin Sodium/Dextrose,Iso 2 GM/50 ML PIGGYBACK IV (06:25)
[2021-10-09 07:30] VITALS: BP 115/54; PULSE 66; RESP 18; TEMP 36.6; O2SAT 98
[2021-10-09] MEDS: 0.9 % Sodium Chloride Flush 3 ML SYRINGE IVFLUSH (10:05)
[2021-10-09] MEDS: methADONE HCl 20 MG/2 ML ORAL.CONC 40 MG PO (10:06)
[2021-10-09] MEDS: vancomycin HCL 1,500 MG in 0.9 % Sodium Chloride 500 ML 333.33 MG IV (10:07)
--- NOTE | 2021-10-09 10:42 | P.DS_ITS ---
DS: Providers Provider Date of Service: 10/09/21 Date of admission: 10/07/21 03:10 Date of discharge: 10/09/21 Primary care physician: Unknown Physician Consults: 10/08/21 11:19 Addiction Medicine Routine Consulting Provider: Nadia Beebe Reason for consultation: cocaine abuse Consult to Care Team Routine Comment: Reason for consultation: cocaine abuse DS: Diagnosis Discharge Diagnosis (1) Opioid use disorder: (2) Cocaine use disorder: Status: Acute (3) Chest pain: Status: Acute (4) Cellulitis of hand: Status: Acute (5) Hepatitis C antibody positive in blood: Status: Acute DS: Summary Hospital Course Hospital Course: from admission H+P by hospitalist Ho Rizzo MD, 10/07/21: ?31-year-old male with past medical history of polysubstance abuse including heroin cocaine, alcohol, history of hep C who presents to the hospital with complaints of chest pain about half an hour after using cocaine.? History is obtained mostly from ED physician as? will as patient? but he is slightly lethargic and difficult to keep awake.? According to the patient he used cocaine about 30 minutes prior to arriving to the ED, he then developed substernal chest pain and therefore decided to come to the hospital.? He is also complaining of bilateral redness of the hands, he admits to injecting in these area.? Of note patient was discharged from the hospital on 09/28 after being treated for cellulitis of bilateral hands.? He reports chills , no nausea or vomiting, no diarrhea constipation. ? On arrival to the ED patient's vitals are significant for temp of 99.6 degrees, heart rate of 113, respiratory rate of 18 blood pressure of 123/54 satt ing 96% on room air Labs was admitted for? WBC count of 13.5, hemoglobin 13.0, hematocrit of 39.2, lactic acid of 2.3, troponin of 54.4, then increase to 35.2,? chest x-ray shows no acute cardiopulmonary finding ?EKG shows nonspecific ST T wave changes the of also present on previous EKG ?patient will be admitted for further management 31yo M with hx IV drug abuse [cocaine, opioids] + AUD recently admitted here 09/27-09/28/21 for bilateral hand cellulitis re-admitted for recurrent cellulitis associated with injection drug abuse. He was not septic. He was treated with cefazolin and vancomycin. There were no drainable collections on exam. He was not bacteremic. Chest pain was attributed to cocaine abuse and he was counseled to avoid it. Methadone was continued. HCV antibody was positive and a viral load is pending at the time of discharge; HIV negative, and he has isolated anti-HBc positivity. He was discharged on doxycycline and cefadroxil for 4 days and should establish primary care as soon as possible. Time Spent with Patient Time attestation: Total time spent providing and/or coordinating discharge services: Discharge coordination time: Greater than 30 minutes Quality: Safe Use of Opioids Does Pt have an Active Cancer Diagnosis on the Problem List?: No Quality: Stroke Does the patient have a stroke diagnosis?: No Physical Exam Vital Signs: Vital Signs: Last Vital Signs Temp 97.8 F 10/09/21 07:30 Pulse 66 10/09/21 07:30 Resp 18 10/09/21 07:30 BP 115/54 L 10/09/21 07:30 Pulse Ox 98 10/09/21 07:30 O2 Del Method 10/09/21 07:30 BMI result Body Mass Index 29.7 DS: Data Data Completed and Pending Labs on day of discharge: Preliminary micro results at discharge 10/07/21 00:48 Blood Culture - Preliminary Blood - Venous No growth after 48 hours. 10/07/21 00:48 Blood Culture - Preliminary Blood - Venous No growth after 48 hours. Discharge Plan Discharge Patient Disposition: Home, Self-Care Discharge Diagnosis: hand cellulitis, cocaine abuse, opioid abuse, hepatitis C antibody positive Referrals: [facility] [Provider Group] - 1 Week Physician,Benigno Feliciano [Primary Care Provider] - 1 Week Discharge Medications: New methadone [Methadose] 10 mg/mL Concentrate 30 mg PO DAILY Qty: 1 0RF Rx Instructions: Partial Fill upon patient request. doxycycline monohydrate 100 mg tablet 100 mg PO BID Qty: 8 0RF cefadroxil 500 mg capsule 500 mg PO BID Qty: 8 0RF Discharge Orders: Discharge Order (Routine); Ordered 10/09/21 Ordered By: Nando Chow Diet: advance to usual diet Activity on Discharge: As tolerated Stand Alone Forms: Patient Portal Discharge page, Community Support Activity Restrictions/Additional Instructions: avoid substance abuse Care Plan Goals: cure of infection recoveryfrom substance abuse Health Concerns: hand cellulitis, cocaine abuse, opioid abuse, hepatitis C antibody positive Plan of Treatment: take 2 antibiotics for 4 more days: cefadroxil 500 mg twice daily PLUS doxycycline 100 mg twice daily continue methadone avoid cocaine establish primary care doctor YUNG; follow up for results of hepatitis C viral load and get treated if positive Assessment: See Discharge Summary Patient Instructions: Cocaine Abuse (DC)
--- NOTE | 2021-10-09 11:00 | MHC.CM.PN ---
pt dcd home with imfo from care team
[2021-10-09 11:30] VITALS: BP 122/64; PULSE 73; RESP 18; TEMP 35.7; O2SAT 97
--- NOTE | 2021-10-09 13:29 | MHC.RECOVRN ---
Met with pt to follow up regarding discharge planning and OTP linkage. There is no bed availability at [facility] or [facility]. Pt provided with contact information for facilities to follow up outpatient. Pt is continuing to call the [facility] to obtain a bed. Pt reports he does have a safe place to go when discharged from the hospital and will be able to follow up independently. Pts referral has been sent to [facility] on , pt provided with last dose letter and is able to present tomorrow morning. Pt provided with written resources, denies questions or concerns. Discussed with Nadia Beebe APRN as well as pts RN.
[2021-10-10 08:47] LABS: Hepatitis B Core Antibody IgM NON-REACTIVE (NON-REACTIVE)
[2021-10-10 21:57] LABS: HepC Viral Load 16000000 IU/mL (NOT DETECTED)
== END 2021-10-09 12:45 | disposition home or self-care (01) ==
LOC: HO.ED 01:51 → HO.EDOVER 04:10 → HO.IMC 20:14
PROVIDERS: Admitting Provider Internal Medicine; Emergency Provider Emergency Medicine; Visit Provider Family Medicine
DX: R07.9 Chest pain, unspecified (principal); L03.114 Cellulitis of left upper limb; L03.113 Cellulitis of right upper limb; F14.10 Cocaine abuse, uncomplicated; F11.90 Opioid use, unspecified, uncomplicated; F19.10 Other psychoactive substance abuse, uncomplicated; B19.20 Unspecified viral hepatitis C without hepatic coma; R00.0 Tachycardia, unspecified; R00.2 Palpitations; F32.A Depression, unspecified; F41.9 Anxiety disorder, unspecified; Z20.822 Contact with and (suspected) exposure to COVID-19; Z79.2 Long term (current) use of antibiotics; Z79.899 Other long term (current) drug therapy
CPT/HCPCS: 36415; 71045; 80048; 80053; 80076; 80202; 83605; 84484; 85025; 85027; 86704; 86705; 86706; 87040; 87340; 87389; 87522; 87635; 93005; 96361; 96365; 96366; 96367; 96375; 99219; 99285; J0690; J2543; J3370; Q0163

== ENCOUNTER 2021-10-11 15:40 | Emergency (ER) | payer OTHER, SELFPAY ==
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
[2021-10-11 15:49] VITALS: BP 141/73; BP 158/106; PULSE 102; PULSE 95; RESP 18; TEMP 36.9; O2SAT 92; O2SAT 97; BMI 29.5
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
--- NOTE | 2021-10-11 17:03 | PC.NURSE ---
unable to obtain IV access at this time. is aware.
[2021-10-11 17:26] VITALS: BP 153/99; PULSE 89; RESP 16; O2SAT 96
--- NOTE | 2021-10-11 17:36 | PC.NURSE ---
[facility] was called to Transfer the pt. At 1621 will call back if pt is accepted
[2021-10-11 17:45] LABS: COVID-19 Test Negative (Negative); IDNOW Serial# 16C4AD1C
[2021-10-11] MEDS: ondansetron HCL 4 MG/2 ML VIAL IVPUSH (17:51)
[2021-10-11] MEDS: 0.9 % Sodium Chloride 1,000 ML 999 ML IV (17:51)
[2021-10-11 17:52] LABS: MANUAL DIFF FLAG NO
[2021-10-11 17:57] LABS: Basophils Percent Auto 0.2 % (0-2); Eosinophils Absolute Auto 0.1 X10*3/uL (0.0-0.4); Eosinophils Percent Auto 0.4 % (0-4); Hematocrit 38.7 % (42.0-52.0); Imm Gran Abs Auto 0.09 X10*3/uL (0.00-0.03); Imm Gran Pct Auto 0.6 % (0.0-0.4); Lymphocytes Absolute Auto 1.7 X10*3/uL (1.2-4.9); Lymphocytes Percent Auto 11.9 % (20-40); Mean Corpuscular HGB Conc 33.6 g/dl (31.0-36.0); Mean Corpuscular Hemoglobin 27.7 pg (27.0-33.0); Mean Corpuscular Volume 82.5 fL (80.0-98.0); Mean Platelet Volume 9.5 fL (9.4-12.4); Monocytes Absolute Auto 1.3 X10*3/uL (0.1-1.2); Monocytes Percent Auto 8.9 % (2-11); Neutrophils Absolute Auto 10.9 x10*3/uL (2.0-8.3); Platelet Count 244 X10*3/uL (160-400); Red Blood Count 4.69 X10*6/uL (4.60-5.80); Red Cell Distribution Width 13.9 % (11.0-16.0)
[2021-10-11 18:04] VITALS: BP 174/102; PULSE 86; RESP 18; O2SAT 96
[2021-10-11 18:11] LABS: Alanine Aminotransferase 123 U/L (0-40); Albumin Level 4.3 g/dL (3.5-5.0); Alkaline Phosphatase 80 U/L (39-117); Anion Gap 15 (12-20); Aspartate Amino Transferase 155 U/L (5-37); Bilirubin Direct 0.3 mg/dL (0.0-0.5); Bilirubin Total 0.6 mg/dL (0.0-1.0); Blood Urea Nitrogen 17 mg/dL (9-16); Calcium 8.8 mg/dL (8.4-10.2); Carbon Dioxide 24 mmol/L (22-29); Chloride 102 mmol/L (96-108); Creatinine Clr Calc Pharmacy 140.6; Estimated Glomerular Filt Rate > 60; Glucose Random 95 mg/dL (60-115); Sodium 137 mmol/L (135-145); Total Protein 7.6 g/dL (6.5-8.0)
--- NOTE | 2021-10-11 18:11 | PC.NURSE ---
EMS is here at 1800 ready to take the pt to [facility]. Disc of radiology done was sent to [facility] but per Radiology the machine is slow and cant produce the physical disc. Pt will be sent to [facility] with just physician notes and transfer information [place]
[2021-10-11 18:16] VITALS: BP 145/93
[2021-10-11 18:16] LABS: Ethanol 38 mg/dL
== END 2021-10-11 18:27 | disposition short-term general hospital (02) ==
PROVIDERS: Emergency Provider Emergency Medicine Emergency Medical Services
DX: S06.6X9A Traumatic subarachnoid hemorrhage with loss of consciousness of unspecified duration, initial encounter (principal); S06.5X9A Traumatic subdural hemorrhage with loss of consciousness of unspecified duration, initial encounter; R40.2412 Glasgow coma scale score 13-15, at arrival to emergency department; F11.20 Opioid dependence, uncomplicated; F14.20 Cocaine dependence, uncomplicated; F10.129 Alcohol abuse with intoxication, unspecified; Y90.9 Presence of alcohol in blood, level not specified; Z20.822 Contact with and (suspected) exposure to COVID-19; V18.0XXA Pedal cycle driver injured in noncollision transport accident in nontraffic accident, initial encounter; Y93.55 Activity, bike riding; Y92.410 Unspecified street and highway as the place of occurrence of the external cause; Y99.9 Unspecified external cause status
CPT/HCPCS: 36410; 36415; 70450; 70486; 71250; 72125; 74176; 80048; 80076; 82077; 85025; 87635; 96361; 96374; 99285; J2405

== ENCOUNTER 2021-10-24 21:21 | Emergency (ER) | payer OTHER, SELFPAY ==
[2021-10-24 21:26] VITALS: BP 152/96; PULSE 123; O2SAT 95
[2021-10-24 21:29] VITALS: BP 152/96; PULSE 123; O2SAT 95
[2021-10-24 21:48] VITALS: BP 130/67; PULSE 108; RESP 12; TEMP 36.9; O2SAT 94; BMI 29.7
[2021-10-24 21:53] VITALS: PULSE 105; O2SAT 93
--- NOTE | 2021-10-24 22:00 | PC.NURSE ---
pt ambulated to [facility] with steady gait, no c/o dizziness or vision changes.
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
--- NOTE | 2021-10-24 22:17 | PC.NURSE ---
PD contacted per request, PD and security here upon discharge.pt resistive to discharge. Pt in PD custody at this time
== END 2021-10-24 22:18 | disposition home or self-care (01) ==
PROVIDERS: Emergency Provider Emergency Medicine
DX: H11.31 Conjunctival hemorrhage, right eye (principal)
CPT/HCPCS: 99282; 99284